=== PATIENT | female | born 1975 | race Caucasian/White ===

== ENCOUNTER → 2020-03-27 08:25 | Outpatient (BNVA) | payer MEDICAID, SELFPAY | PROVIDERS: Visit Provider Psychiatry & Neurology Psychiatry | DX: F41.9 Anxiety disorder, unspecified (principal); F34.9 Persistent mood [affective] disorder, unspecified; F43.10 Post-traumatic stress disorder, unspecified; F17.200 Nicotine dependence, unspecified, uncomplicated; G47.00 Insomnia, unspecified; Z87.820 Personal history of traumatic brain injury; G47.33 Obstructive sleep apnea (adult) (pediatric); J44.9 Chronic obstructive pulmonary disease, unspecified; M19.90 Unspecified osteoarthritis, unspecified site; F17.210 Nicotine dependence, cigarettes, uncomplicated | CPT/HCPCS: 99205 ==

== ENCOUNTER → 2020-05-04 07:47 | Outpatient (BNVA) | payer MEDICAID, SELFPAY | PROVIDERS: Visit Provider Psychiatry & Neurology Psychiatry | DX: F34.9 Persistent mood [affective] disorder, unspecified (principal); Z87.820 Personal history of traumatic brain injury; F17.200 Nicotine dependence, unspecified, uncomplicated; G47.33 Obstructive sleep apnea (adult) (pediatric); J44.9 Chronic obstructive pulmonary disease, unspecified; F43.10 Post-traumatic stress disorder, unspecified; G47.00 Insomnia, unspecified; G47.01 Insomnia due to medical condition | CPT/HCPCS: 99214 ==

== ENCOUNTER → 2020-06-01 07:48 | Outpatient (BNVA) | payer MEDICAID, SELFPAY | PROVIDERS: Visit Provider Psychiatry & Neurology Psychiatry | DX: F43.10 Post-traumatic stress disorder, unspecified (principal); F34.9 Persistent mood [affective] disorder, unspecified; F17.200 Nicotine dependence, unspecified, uncomplicated | CPT/HCPCS: 99213 ==

== ENCOUNTER 2020-07-03 08:18 | Outpatient (CLI) | payer MEDICAID, SELFPAY ==
--- NOTE | 2020-07-03 08:27 | US_ITS ---
WS: [id number] ULTRASOUND ABDOMEN LIMITED CLINICAL INFORMATION: CHRONIC VIRAL HEPATITIS C COMPARISON: None. FINDINGS: Liver Size: Upper limits of normal Craniocaudal length: 15.2 cm. Echogenicity: Coarse Surface nodularity: None. Mass (size and location): None. Bile ducts Intrahepatic ducts: Normal. Common bile duct diameter: 0.5 cm. Gallbladder Cholelithiasis Gallstones: Present Gallbladder sludge: None. Gallbladder wall thickening: None. Pericholecystic fluid: None. Sonographic Kelly sign: Absent. Pancreas Normal as visualized. Right kidney: Normal. Hydronephrosis: None. Size: 9.7 cm x 5.9 cm x 5.4 cm. Abdominal aorta and IVC Visualized portions are normal. Ascites: None. US/US gall bladder [id number] IMPRESSION: 1. Mild hepatomegaly with diffuse fatty infiltration. 2. Cholelithiasis. Normal common bile duct. Gallbladder wall thickening. 3. No hydronephrosis in right kidney.
--- NOTE | 2020-07-03 09:00 | PFTS_ITS ---
Date of Study:07/03/20 Date of Dictation: MECHANICS: Forced vital capacity (FVC) is . Forced expiratory volume in one second (FEV1) is . FEV1/FVC is . FLOW VOLUME LOOP: . LUNG VOLUMES: Total lung capacity (TLC) is . Residual volume (RV) is . DIFFUSING CAPACITY FOR CARBON MONOXIDE: . INTERPRETATION: The pulmonary function tests are . mechanics and lung volumes. Gas exchange (DLCO) is . MTDD
== END 2020-07-03 08:19 | disposition home or self-care (01) ==
LOC: US 08:20 → RAD 08:24
PROVIDERS: Visit Provider Nurse Practitioner Family
DX: B18.2 Chronic viral hepatitis C (principal); E04.0 Nontoxic diffuse goiter; R73.9 Hyperglycemia, unspecified; R16.0 Hepatomegaly, not elsewhere classified; K76.0 Fatty (change of) liver, not elsewhere classified; K80.20 Calculus of gallbladder without cholecystitis without obstruction
CPT/HCPCS: 36415; 76705; 94060; J7611

== ENCOUNTER → 2020-07-13 08:11 | Outpatient (BNVA) | payer MEDICAID, SELFPAY | PROVIDERS: Visit Provider Psychiatry & Neurology Psychiatry | DX: F43.10 Post-traumatic stress disorder, unspecified (principal); F17.200 Nicotine dependence, unspecified, uncomplicated; F34.9 Persistent mood [affective] disorder, unspecified | CPT/HCPCS: 99213 ==

== ENCOUNTER 2020-07-15 10:32 | Emergency (ER) | payer MEDICAID, SELFPAY ==
[2020-07-15 10:50] VITALS: BP 127/87; PULSE 99; RESP 16; TEMP 36.4; O2SAT 96; BMI 32.3
--- NOTE | 2020-07-15 11:07 | W.ED.DENTAL ---
HPI - Dental/Oral General: Chief complaint: Dental/Oral Stated complaint: DENTAL PAIN Time Seen by Provider: 07/15/20 11:03 Source: patient Mode of arrival: ambulatory Limitations: no limitations History of Present Illness: HPI Narrative: Citlalli is a nice 45-year-old female who comes in complaining of left lower dental pain. She states her pain began last night. She denies any difficulty swallowing, speaking, she feels a hard area in her mouth but there is no facial swelling. There is been no fever. She denies any nausea or vomiting. She does not report trying anything at home prior to coming in. She describes the pain is severe. She is had similar pain in the past. Associated symptoms: Denies ear or mastoid pain, fever(s) or tongue swelling Review of Systems Const: Denies: fever(s), chills, body aches, fatigue, malaise or diaphoresis Eyes: Denies: change in vision, blurry vision, photophobia, eye discomfort, eye discharge or eye redness ENMT: Reports: dental pain; Denies: throat pain, hoarseness, swelling of lips/tongue, ear or mastoid pain, ear discharge, change in hearing or nasal discharge Card: Denies: chest pain, palpitations, irregular heart rhythm, edema, lightheadedness, syncope, pre-syncope, dyspnea on exertion or orthopnea Resp: Denies: dyspnea, productive cough, non-productive cough, wheezing, hemoptysis or chest congestion GI: Denies: abdominal pain, nausea, vomiting, hematemesis, coffee ground emesis, heartburn, diarrhea, constipation, GI cramping, hematochezia or melena : Denies: flank pain, dysuria, urinary frequency, urinary urgency or hematuria Musc: Denies: neck pain, back pain, extremity pain, extremity swelling, joint pain, joint swelling, joint redness, joint warmth or joint stiffness Skin/Breast: Denies: rash, pruritus, erythema or skin tenderness Neuro: Denies: headache(s), numbness in extremities, weakness in extremities, sensory changes, lack of coordination, difficulty walking, dizziness, vertigo, confusion, Slurred speech present or seizure-like activity Gino/Lymph: Denies: easy bruising, easy bleeding, petechiae, purpura or enlarged lymph nodes All/Imm: Denies: urticaria, throat swelling, tongue swelling, facial swelling or acute wheezing PFSH ED PFSH: Medical History EtOH dependence History of concussion Insomnia Surgical History History of tonsillectomy Social History Smoking and tobacco status: heavy tobacco smoker Alcohol intake: never Substance/Drug Use: never Current gender identity: Female Female Reproductive History: Date of last menstrual period: 06/18/20 Physical Exam Const: COMMON NORMALS: no acute distress, patient oriented x3, no limitations, healthy appearing and well nourished GENERAL APPEARANCE: cooperative, well kempt and well developed HENMT: COMMON NORMALS: normocephalic, atraumatic, external ears normal, EAC's normal and Normal external nose present HEAD & SCALP: normal to inspection, normocephalic and atraumatic FACE & SINUS: normal facial exam and face symmetric NOSE: Normal external nose present and Normal nares present EXTERNAL EAR: Yes external ears normal EXTERNAL AUDITORY CANAL: EAC's normal MOUTH: Normal oral and palatal mucosa present, lip normal and tongue normal TEETH & GINGIVA: Yes other (Left inferior second most posterior molar with obvious dental carry. No surrounding gingival inflammation. No abscess.) Eye: COMMON NORMALS: Equal, round and reactive pupils present and conjunctivae normal GENERAL EYE: appearance normal, both eyes and all related structures ALIGNMENT: Yes alignment normal PERIORBITAL: periorbital findings normal EYELID: eyelids normal CONJUNCTIVA: Yes conjunctivae normal SCLERA: sclerae normal PUPIL: Yes Equal, round and reactive pupils present Neck/C-Spine: COMMON NORMALS: full ROM, no lymphadenopathy, supple, no meningeal signs and no JVD GENERAL: Yes normal visual inspection and Yes trachea midline Chest: COMMONS NORMALS: normal inspection of the chest and normal palpation of entire chest wall Resp: COMMON NORMALS: normal respiratory effort, No retractions, No use of accessory muscles and clear to auscultation bilaterally EFFORT & INSPECTION: Yes able to speak in complete sentences and Yes symmetric chest movement AUSCULTATION: clear to auscultation bilaterally, no crackles, no rales, no rhonchi and no wheezes Cardio: COMMON NORMALS: no JVD, regular rate, regular rhythm, S1 normal heart sound present and S2 normal heart sound present RATE: regular rate RHYTHM: regular rhythm HEART SOUNDS: S1 normal heart sound present, S2 normal heart sound present, no click, no gallops, no murmurs, no rubs and abnormal split S2 GI: COMMON NORMALS: Soft to palpation and No hepatosplenomegaly present PALPATION: Yes Soft to palpation, No Tenderness to palpation present (GI), No Guarding due to palpation present (GI), No Rigid due to palpation, Yes No hepatosplenomegaly present, No Hernia present, No Palpable mass present and No Pulsatile mass present : COMMON NORMALS: Yes no CVA tenderness BLADDER/KIDNEY EXAM: Yes no CVA tenderness EXTERNAL FEMALE EXAM: No Hernia present Back/Pelvis: COMMON NORMALS: no CVA tenderness, thoracic and lumbar spine normal to inspection, no thoracic nor lumbar tenderness and thoraco-lumbar ROM normal Extremity: COMMON NORMALS: normal to inspection, full ROM, capillary refill normal, no joint enlargement, no clubbing, cyanosis or edema and no calf tenderness Neuro: COMMON NORMALS: patient oriented x3, CN's II-XII intact bilaterally, moves all extremities, no focal motor deficits and no sensory deficits noted MENINGEAL SIGNS: Yes no meningeal signs SPEECH: speech normal Psych: COMMON NORMALS: mental status grossly normal, Normal thought process present, cooperative, normal affect, speech normal and activity/motor behavior normal APPEARANCE: Yes well kempt SPEECH: Yes normal speech THOUGHT PROCESS: Normal thought process present Skin: COMMON NORMALS: no rashes or lesions noted, turgor normal, no jaundice, no petechiae and no mottling GENERAL SKIN EXAM: no rashes or lesions noted and turgor normal Course Vital Signs: Vital signs: Vital Signs Temperature 97.6 F 07/15/20 11:32 Pulse Rate 97 07/15/20 11:32 Respiratory Rate 18 07/15/20 11:32 Blood Pressure 127/62 07/15/20 11:32 Pulse Oximetry 96 07/15/20 11:32 MDM - Dental/Oral MDM Narrative: Medical decision making narrative: Citlalli is a 45-year-old female who comes in complaining of dental pain that started last night. Her vital signs are stable and she is afebrile. On exam there is no sign of airway issue. The patient is able to speak clearly and to my examination there is no facial swelling. Patient is no sign of Ronaldo's angina, dental abscess, airway or deep space infection. I will place her on antibiotics to cover dental infection and give her something strong here for pain. Patient is instructed to use cold packs and Tylenol Motrin at home. She understands that she will need to follow-up with a dentist to have definitive care of her teeth. Discharge Plan Discharge Patient Disposition: Home Clinical Impression: Toothache, Dental caries Condition: Stable Prescriptions: New Cleocin HCl 150 mg capsule 300 mg PO Q6H 10 Days Qty: 80 RF: 0 No Action levomefolate calcium [L-Methylfolate] 15 mg tablet 15 mg PO DAILY Qty: 30 RF: 2 albuterol sulfate 90 mcg/actuation HFA aerosol inhaler 2 puff INHALATION Q6H PRNRF: 0 fluticasone propion-salmeterol [Advair Diskus] 250-50 mcg/dose blister with device 1 inh INHALATION BID RF: 0 Spiriva Respimat 1.25 mcg/actuation mist 2 puff INHALATION DAILY RF: 0 buspirone 10 mg tablet 20 mg PO TID 30 Days Qty: 180 RF: 2 duloxetine [Cymbalta] 60 mg capsule,delayed release(DR/EC) 120 mg PO DAILY Qty: 60 RF: 2 prazosin 5 mg capsule 5 mg PO .HS Qty: 30 RF: 2 hydroxyzine HCl 50 mg tablet 50 mg PO QID PRN (Reason: insomnia/anxiety) Qty: 120 RF: 2 Discharge Orders: Discharge Order (Routine); Ordered 07/15/20 Ordered By: Destiny Smith Discharge Diet: Soft Mechanical Discharge Activity: Increase activity as tolerated Patient Instructions: Dental Caries (ED), Toothache (ED) Activity Restrictions/Additional Instructions: Please return to the ER immediately for any of the signs or symptoms listed on your discharge instruction sheets, worsening/changing of your symptoms, you are not getting better as quickly as expected, or for ANY other cause or concerns. Return to ER for facial swelling, fever, difficulty swallowing, or for any other cause for concern. Be certain to follow-up with a dentist as soon as possible for definitive care of your tooth. 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
[2020-07-15 11:08] VITALS: BP 127/87; PULSE 97; RESP 20; O2SAT 97
[2020-07-15] MEDS: HYDROcodone-acetaminophen 5-325 mg Tablet 1 TAB PO (11:18)
[2020-07-15] MEDS: clindamycin 150 mg Capsule 300 MG PO (11:28)
[2020-07-15 11:32] VITALS: BP 127/62; PULSE 97; RESP 18; TEMP 36.4; O2SAT 96
== END 2020-07-15 11:35 | disposition home or self-care (01) ==
LOC: ER 11:20
PROVIDERS: Emergency Provider Emergency Medicine
DX: K02.9 Dental caries, unspecified (principal); F17.210 Nicotine dependence, cigarettes, uncomplicated
CPT/HCPCS: 12345; 99281; 99283

== ENCOUNTER → 2020-10-05 08:25 | Outpatient (BNVA) | payer MEDICAID, SELFPAY | PROVIDERS: Visit Provider Psychiatry & Neurology Psychiatry | DX: F43.10 Post-traumatic stress disorder, unspecified (principal); F17.200 Nicotine dependence, unspecified, uncomplicated; F34.9 Persistent mood [affective] disorder, unspecified | CPT/HCPCS: 99213 ==

== ENCOUNTER 2020-12-27 13:01 | Outpatient (CLI) | payer MEDICAID, SELFPAY ==
--- NOTE | 2020-12-27 13:17 | XR_ITS ---
WS: [id number] PROCEDURE: XR chest 2V* [id number] CLINICAL INFORMATION: CHRONIC OBSTRUCTIVE PULMONART DISEASE COMPARISON: None. FINDINGS: Heart: Normal cardiac silhouette. Lungs: Moderate chronic emphysematous changes. No acute pulmonary infiltrates. No focal pneumonia or pleural fluid. Bones: Normal visualized bony structures. XR/XR chest 2V* [id number] IMPRESSION: Moderate chronic emphysematous changes. No acute pulmonary infiltrates.
== END 2020-12-27 13:02 | disposition home or self-care (01) ==
LOC: RADWPI 13:04
PROVIDERS: PCP Nurse Practitioner Family; Visit Provider Nurse Practitioner Family
DX: J44.9 Chronic obstructive pulmonary disease, unspecified (principal)
CPT/HCPCS: 71046

== ENCOUNTER → 2020-12-29 08:18 | Outpatient (BNVA) | payer MEDICAID, SELFPAY | PROVIDERS: PCP Nurse Practitioner Family; Visit Provider Psychiatry & Neurology Psychiatry | DX: F43.10 Post-traumatic stress disorder, unspecified (principal); F34.9 Persistent mood [affective] disorder, unspecified; F17.200 Nicotine dependence, unspecified, uncomplicated; G47.01 Insomnia due to medical condition | CPT/HCPCS: 99214 ==

== ENCOUNTER → 2021-02-08 08:06 | Outpatient (BNVA) | payer MEDICAID, SELFPAY | PROVIDERS: PCP Nurse Practitioner Family; Visit Provider Psychiatry & Neurology Psychiatry | DX: F43.10 Post-traumatic stress disorder, unspecified (principal); F17.200 Nicotine dependence, unspecified, uncomplicated; F34.9 Persistent mood [affective] disorder, unspecified | CPT/HCPCS: 99213 ==

== ENCOUNTER 2021-03-14 14:02 | Outpatient (CLI) | payer MEDICAID, SELFPAY ==
--- NOTE | 2021-03-14 14:10 | US_ITS ---
WS: [id number] ULTRASOUND THYROID TECHNIQUE: Ultrasound of the thyroid. CLINICAL INFORMATION: NONTOXIC GOITER COMPARISON: None. FINDINGS: Thyroid: Right and left thyroid lobes are normal in size and echotexture. Right thyroid lobe: 5.2 cm x 2.0 cm x 1.1 cm Solid slightly heterogeneous right mid thyroid nodule measuring 7.4 7.1 x 9.0 mm. Left thyroid lobe: 4.4 cm x 1.3 cm x 1.4 cm. Isthmus: 0.4 mm. Cervical lymphadenopathy: None. US/US thyroid [id number] IMPRESSION: 1. Solid slightly heterogeneous right mid thyroid nodule measuring 7.4 x 7.1 x 9.0 mm. Recommend 12 month follow-up. 2. No suspicious left thyroid nodules.
== END 2021-03-14 14:03 | disposition home or self-care (01) ==
LOC: US 14:03
PROVIDERS: PCP Nurse Practitioner Family; Visit Provider Nurse Practitioner Family
DX: E04.9 Nontoxic goiter, unspecified (principal)
CPT/HCPCS: 76536

== ENCOUNTER 2021-04-07 15:46 | Emergency (ER) | payer MEDICAID, SELFPAY ==
[2021-04-07 15:48] VITALS: BP 125/87; PULSE 75; RESP 20; TEMP 36.8; O2SAT 97; BMI 31.8
--- NOTE | 2021-04-07 16:25 | ED_ITS ---
HPI - Fever General: Chief Complaint: Fever Stated Complaint: fever and cold symptoms Time Seen by Provider: 04/07/21 15:52 Source: patient Mode of arrival: ambulatory Limitations: no limitations History of Present Illness: HPI Narrative: This is a 46 year old female with a history of COPD who still smokes one pack of cigarettes a day. She presents with subjective fever, chills, cough, myalgias of 3 days duration. She states that she has been getting worse and so is here to be evaluated. MD elicited complaint: fever Onset (ago): day(s) (3) Exacerbating factors: nothing Relieving factors: nothing Associated symptoms: Reports chills, cough, myalgias, nasal congestion and short of breath; Deny abdominal pain, flank pain, chest pain, confusion, diarrhea, dysuria, extremity pain, headache(s), nausea, night sweats, rash, rhinorrhea, sinus pain, stiffness, sore throat, vaginal discharge, vomiting or weight loss Treatments prior to arrival fever: none Review of Systems General: Reports: 10 or more systems reviewed and unremarkable except in HPI and below Const: Reports: chills; Denies: night sweats ENMT: Reports: nasal congestion; Denies: sinus pain Card: Denies: chest pain GI: Denies: abdominal pain, nausea, vomiting or diarrhea : Denies: flank pain, dysuria or vaginal discharge Musc: Denies: extremity pain Neuro: Denies: headache(s) or confusion PFS ED PFSH: Medical History (Updated 04/07/21 @ 18:07 by Conchis Moreno MD, MSM) Cholelithiasis COPD (chronic obstructive pulmonary disease) EtOH dependence Hepatitis C History of concussion Insomnia Post traumatic stress disorder (PTSD) Surgical History History of hip replacement right History of tonsillectomy Family History Grandfather Cancer paternal lung cancer Other Diabetes Denies family history of Anesthesia complication Bleeding disorder Social History Smoking and tobacco status: heavy tobacco smoker Alcohol intake: never Household members: family Marital status: Single Current occupational status: employed History of recent travel: No Current gender identity: Female Female Reproductive History: Date of last menstrual period: 06/18/20 Physical Exam Const: COMMON NORMALS: no acute distress, average body habitus, patient oriented x3, no limitations, healthy appearing, alert and well nourished HENMT: COMMON NORMALS: normocephalic, atraumatic and moist oral mucous membranes HEAD & SCALP: normocephalic and atraumatic Neck/C-Spine: COMMON NORMALS: no meningeal signs and no JVD Resp: COMMON NORMALS: normal respiratory effort, No retractions, No use of ac cessory muscles and percussion normal AUSCULTATION: wheezes and diminished lung sounds PERCUSSION: percussion normal Cardio: COMMON NORMALS: no JVD, regular rate, regular rhythm, S1 normal heart sound present, S2 normal heart sound present, No gallops present (Cardio), No clicks present (Cardio), No murmurs present (Cardio), No rub (Cardio) and Peripheral pulses 2+ throughout RATE: regular rate RHYTHM: regular rhythm HEART SOUNDS: S1 normal heart sound present and S2 normal heart sound present PERIPHERAL PULSES: Peripheral pulses 2+ throughout GI: COMMON NORMALS: Normal to inspection, nondistended, normoactive bowel sounds present, Soft to palpation, non-tender, No hepatosplenomegaly present, no masses and no bruits PALPATION: Yes Soft to palpation and Yes No hepatosplenomegaly present Neuro: COMMON NORMALS: patient oriented x3 SENSORIUM/ORIENTATION: Yes alert MENINGEAL SIGNS: Yes no meningeal signs Skin: COMMON NORMALS: no rashes or lesions noted, no wounds, turgor normal, no jaundice, no petechiae and no mottling GENERAL SKIN EXAM: no rashes or lesions noted and turgor normal Course Reevaluation(s): Reevaluation #1: Discussed her lab and imaging findings with her. Symptoms consistent with COPD exacerbation and possibly pneumonia. We will treat her with oral antibiotic and steroids. She voiced understanding and is in agreement with the plan. Time: 18:06 Vital Signs: Vital signs: Vital Signs Temperature 98.3 F 04/07/21 15:48 Pulse Rate 77 04/07/21 18:27 Respiratory Rate 17 04/07/21 18:23 Blood Pressure 149/100 04/07/21 17:03 Pulse Oximetry 96 04/07/21 18:23 MDM - Fever MDM Narrative: Medical decision making narrative: 46-year-old female patient who presented to the emergency department with a fever body aches and a cough. Evaluation in the emergency department is consistent with a COPD exacerbation and she is managed as such. Medical Records: Attestation: I reviewed the patient's medical records. Lab Data: Attestation: I reviewed the patient's lab results. Labs: Lab Results 04/07/21 04/07/21 04/07/21 Range/Units 17:00 17:00 17:00 WBC 6.3 (4.0-10.0) 10^3/ uL RBC 4.10 (4.1-5.3) 10^6/u L Hgb 11.7 (11.5-15.3) g/dL Hct 36.9 L (37.0-47.0) % MCV 90.0 (81-99) fL MCH 28.5 (28.0-34.0) pg MCHC 31.7 (30.0-36.0) g/dL RDW 13.9 (12.1-15.1) % Plt Count 280 (130-400) 10^3/c mm MPV 9.5 (7.4-10.4) fL Neut % (Auto) 53.9 % Lymph % (Auto) 32.3 % [place] % (Auto) 9.4 % Eos % (Auto) 3.8 % Baso % (Auto) 0.3 % Neut # (Auto) 3.36 (1.8-7.7) 10^3/u L Lymph # (Auto) 2.0 (0.8-4.8) 10^3/u L [place] # (Auto) 0.6 (0.2-0.9) 10^3/u L Eos # (Auto) 0.2 (0.0-0.8) 10^3/u L Baso # (Auto) 0.0 (0.0-0.1) 10^3/u L Nucleated RBC % (a uto) 0 % Nucleated RBCs # 0.0 /100WBC Sodium 139 (136-145) mmol/L Potassium 4.0 (3.5-5.1) mmol/L Chloride 105 (98-107) mmol/L Carbon Dioxide 25 (22-29) mmol/L Anion Gap 13.0 (5-19) BUN 5 L (6-20) mg/dL Creatinine 0.9 (0.5-0.9) mg/dL GFR Calculation 68.0 L (90-130) mL/min Glucose 83 (65-115) mg/dL Calculated Osmolal ity 284 L (285-295) mOsm/k g Lactic Acid 1.3 (0.5-2.2) mmol/L Calcium 7.8 L (8.5-10.5) mg/dL Ferritin 37 (15-150) ng/mL Total Bilirubin 0.2 (0.15-1.2) mg/dL AST 7 (0-32) U/L ALT < 5 (0-33) U/L Alkaline Phosphata se 83 (35-105) IU/L C-Reactive Protein 23.5 H (0.0-4.9) mg/L Total Protein 6.1 L (6.6-8.7) g/dL Albumin 3.4 L (3.5-5.2) g/dL Globulin 2.7 (1.3-4.6) g/dL Procalcitonin 0.04 (0-0.5) ng/mL Influenza Type A A g (Negative) Influenza Type B A g (Negative) SARS-CoV-2 Ag (Rap id) (Negative) 04/07/21 04/07/21 Range/Units 17:00 17:00 WBC (4.0-10.0) 10^3/ uL RBC (4.1-5.3) 10^6/u L Hgb (11.5-15.3) g/dL Hct (37.0-47.0) % MCV (81-99) fL MCH (28.0-34.0) pg MCHC (30.0-36.0) g/dL RDW (12.1-15.1) % Plt Count (130-400) 10^3/c mm MPV (7.4-10.4) fL Neut % (Auto) % Lymph % (Auto) % [place] % (Auto) % Eos % (Auto) % Baso % (Auto) % Neut # (Auto) (1.8-7.7) 10^3/u L Lymph # (Auto) (0.8-4.8) 10^3/u L [place] # (Auto) (0.2-0.9) 10^3/u L Eos # (Auto) (0.0-0.8) 10^3/u L Baso # (Auto) (0.0-0.1) 10^3/u L Nucleated RBC % (a uto) % Nucleated RBCs # /100WBC Sodium (136-145) mmol/L Potassium (3.5-5.1) mmol/L Chloride (98-107) mmol/L Carbon Dioxide (22-29) mmol/L Anion Gap (5-19) BUN (6-20) mg/dL Creatinine (0.5-0.9) mg/dL GFR Calculation (90-130) mL/min Glucose (65-115) mg/dL Calculated Osmolal ity (285-295) mOsm/k g Lactic Acid (0.5-2.2) mmol/L Calcium (8.5-10.5) mg/dL Ferritin (15-150) ng/mL Total Bilirubin (0.15-1.2) mg/dL AST (0-32) U/L ALT (0-33) U/L Alkaline Phosphata se (35-105) IU/L C-Reactive Protein (0.0-4.9) mg/L Total Protein (6.6-8.7) g/dL Albumin (3.5-5.2) g/dL Globulin (1.3-4.6) g/dL Procalcitonin (0-0.5) ng/mL Influenza Type A A g Negative (Negative) Influenza Type B A g Negative (Negative) SARS-CoV-2 Ag (Rap id) Negative (Negative) Imaging Data^: CXR: Attestation: I personally reviewed and interpreted this imaging study as follows: Radiologist's impression: [address] [address]POrs ReportSigned Patient: Citlalli Chappell #: [id number]: [id number]#:[id number]/Sex: 46 / FADM Date: 04/07/21Loc: ERRoom/Bed:Attending Dr: Ordering Provider/Ordering MD: Conchis Moreno MD, [facility] Date of Service: 04/07/21 Procedure(s): XR chest 1V portable [id number] Accession Number(s): [id number] Report Number: [id number] PROCEDURE INFORMATION: Exam: XR Chest Exam date and time: 04/07/2021 4:40 PM Age: 46 years old Clinical indication: Shortness of breath; Additional info: SOB, fever, cough TECHNIQUE: Imaging protocol: XR of the chest. Views: 1 view. COMPARISON: CR XR chest 2V* [id number] 12/27/2020 1:23 PM FINDINGS: Lungs: There is increased interstitial opacity and hazy ground-glass densities in the lung bases compatible with mild interstitial edema, bronchitis or viral pneumonitis. There is unchanged linear scarring in the left lower lobe. No lobar consolidation. Pleural spaces: Unremarkable. No pleural effusion. No pneumothorax. Heart/Mediastinum: There is borderline cardiomegaly. Bones/joints: No acute abnormality. XR/XR chest 1V portable [id number] IMPRESSION: There is increased interstitial opacity and hazy ground-glass densities in the lung bases compatible with mild interstitial edema, bronchitis or viral pneumonitis. Dictated By:Tyree Cui By:Tyree Cui Date/Time:04/07/211704DD/ 03 Discharge Plan Discharge Patient Disposition: Home Clinical Impression: COPD exacerbation Condition: Stable Prescriptions: New azithromycin 250 mg tablet See Rx Instructions .ROUTE .COMPLEX Qty: 6 RF: 0 prednisone 20 mg tablet 60 mg PO DAILY 5 Days Qty: 15 RF: 0 Continued levomefolate calcium [L-Methylfolate] 15 mg tablet 15 mg PO DAILY Qty: 30 RF: 2 buspirone 10 mg tablet 20 mg PO TID 30 Days Qty: 180 RF: 2 duloxetine [Cymbalta] 60 mg capsule,delayed release(DR/EC) 120 mg PO DAILY Qty: 60 RF: 2 hydroxyzine HCl 50 mg tablet 50 mg PO QID PRN (Reason: insomnia/anxiety) Qty: 120 RF: 2 trazodone 100 mg tablet 200 mg PO .HS PRN (Reason: insomnia) Qty: 60 RF: 2 prazosin 5 mg capsule 5 mg PO .HS Qty: 30 RF: 2 albuterol sulfate 90 mcg/actuation HFA aerosol inhaler 2 puff INHALATION Q6H PRNRF: 0 fluticasone propion-salmeterol [Advair Diskus] 250-50 mcg/dose blister with device 1 inh INHALATION BID RF: 0 Spiriva Respimat 1.25 mcg/actuation mist 2 puff INHALATION DAILY RF: 0 cholecalciferol (vitamin D3) 25 mcg (1,000 unit) capsule 25 mcg PO DAILY RF: 0 sofosbuvir-velpatasvir [Epclusa] 400-100 mg tablet 1 tab PO DAILY 84 Days Qty: 28 RF: 2 Discharge Orders: Discharge ED (Routine); Ordered 04/07/21 Ordered By: Conchis Moreno Referrals: Noemí Harris NP [Primary Care Provider] - 1-3 days Discharge Diet: Usual diet Discharge Activity: Increase activity as tolerated Patient Instructions: Chronic Obstructive Pulmonary Disease (ED), Community- acquired Pneumonia (ED) Activity Restrictions/Additional Instructions: Return for any new or worsening symptoms. Follow-up with your primary care provider within 3 days. Take medications as prescribed. Use your albuterol inhaler every 4 hours for the next 2 days, and then every 4 hours as needed thereafter. It is important to quit smoking to help improve your lung function and to prevent further deterioration of your lungs. Stand Alone Forms: Work/School Release Coding Level of Care Code ED [employer] Targeting Technician for Danya Fwd Exam Detailed
[2021-04-07 17:03] VITALS: BP 149/100; PULSE 73; RESP 16; O2SAT 98
[2021-04-07 17:09] LABS: Basophils % 0.3 %; Eosinophils # 0.2 10^3/uL (0.0-0.8); Eosinophils % 3.8 %; Hematocrit 36.9 % (37.0-47.0); Hemoglobin 11.7 g/dL (11.5-15.3); Lymphocytes % 32.3 %; Mean Corpuscular HGB Conc 31.7 g/dL (30.0-36.0); Mean Corpuscular Hemoglobin 28.5 pg (28.0-34.0); Mean Platelet Volume 9.5 fL (7.4-10.4); Monocytes # 0.6 10^3/uL (0.2-0.9); Monocytes % 9.4 %; Neutrophils # 3.36 10^3/uL (1.8-7.7); Neutrophils % 53.9 %; Nucleated Red Blood Cells % 0 %; Platelet Count 280 10^3/cmm (130-400); Red Cell Distribution Width 13.9 % (12.1-15.1); White Blood Count 6.3 10^3/uL (4.0-10.0)
[2021-04-07 17:26] LABS: Lactic Sepsis W/Reflex 1.3 mmol/L (0.5-2.2)
[2021-04-07 17:33] LABS: Influenza A by IFA Negative (Negative); Influenza B by IFA Negative (Negative); SARS Covid-2 Antigen Negative (Negative)
[2021-04-07 17:36] LABS: Procalcitonin 0.04 ng/mL (0-0.5)
[2021-04-07 17:47] LABS: Alanine Aminotransferase < 5 U/L (0-33); Albumin Level 3.4 g/dL (3.5-5.2); Alkaline Phosphatase 83 IU/L (35-105); Aspartate Amino Transferase 7 U/L (0-32); Blood Urea Nitrogen 5 mg/dL (6-20); C Reactive Protein 23.5 mg/L (0.0-4.9); Calcium 7.8 mg/dL (8.5-10.5); Carbon Dioxide 25 mmol/L (22-29); Chloride 105 mmol/L (98-107); Ferritin 37 ng/mL (15-150); Globulin 2.7 g/dL (1.3-4.6); Glucose 83 mg/dL (65-115); Osmolality Calculated 284 mOsm/kg (285-295); Sodium 139 mmol/L (136-145); Total Bilirubin 0.2 mg/dL (0.15-1.2); Total Protein 6.1 g/dL (6.6-8.7)
[2021-04-07 18:23] VITALS: PULSE 69; RESP 17; O2SAT 96
[2021-04-07] MEDS: albuterol 8 gm MDI 4 PUFF INHALATION (18:23)
[2021-04-07 18:27] VITALS: PULSE 77
[2021-04-07] MEDS: cefTRIAXone 1,000 MG in sodium chloride 0.9% (plus) 50 ML 100 MG IV (18:36)
== END 2021-04-07 19:25 | disposition home or self-care (01) ==
PROVIDERS: Emergency Provider Family Medicine; PCP Nurse Practitioner Family
DX: J44.1 Chronic obstructive pulmonary disease with (acute) exacerbation (principal); Z86.19 Personal history of other infectious and parasitic diseases; F17.210 Nicotine dependence, cigarettes, uncomplicated
CPT/HCPCS: 71045; 80053; 82728; 83605; 84145; 85025; 86140; 87426; 87804; 94640; 96365; 96375; 99284; J0696; J2930; J3535

== ENCOUNTER → 2021-05-03 12:45 | Outpatient (BNVA) | payer MEDICAID, SELFPAY | PROVIDERS: PCP Nurse Practitioner Family; Visit Provider Psychiatry & Neurology Psychiatry | DX: F43.10 Post-traumatic stress disorder, unspecified (principal); F17.200 Nicotine dependence, unspecified, uncomplicated; F34.9 Persistent mood [affective] disorder, unspecified | CPT/HCPCS: 99213 ==

== ENCOUNTER → 2021-06-20 15:25 | Outpatient (BNVA) | payer MEDICAID, SELFPAY | PROVIDERS: PCP Nurse Practitioner Family; Visit Provider Internal Medicine | DX: B18.2 Chronic viral hepatitis C (principal) | CPT/HCPCS: 87522 ==

== ENCOUNTER → 2021-07-26 12:42 | Outpatient (BNVA) | payer MEDICAID, SELFPAY | PROVIDERS: PCP Nurse Practitioner Family; Visit Provider Psychiatry & Neurology Psychiatry | DX: F43.10 Post-traumatic stress disorder, unspecified (principal); F34.9 Persistent mood [affective] disorder, unspecified; F17.210 Nicotine dependence, cigarettes, uncomplicated | CPT/HCPCS: 99213 ==

== ENCOUNTER 2021-08-17 10:35 | Outpatient (CLI) | payer MEDICAID, SELFPAY ==
--- NOTE | 2021-08-17 11:02 | XR_ITS ---
WS: [id number] LEFT ELBOW: 3 VIEW(S) TECHNIQUE: AP, oblique and lateral. HISTORY: PAIN IN LEFT ELBOW COMPARISON: None available. There is very slight elevation of the cortex involving the surface of the radial head and the radial neck. This may be from an injury to the annular and/or radial collateral ligament with a mild avulsio n. There is no associated joint effusion at this time. No soft tissue abnormality. XR/XR elbow LT 2V [id number] IMPRESSION: 1. No joint effusion. 2. Very slight elevation of the cortex involving the radial head and neck. May be from injury associated with the radial collateral ligament and/or annular l igament. May be a healed injury as there is no joint effusion.
== END 2021-08-17 10:36 | disposition home or self-care (01) ==
PROVIDERS: PCP Nurse Practitioner Family; Visit Provider Nurse Practitioner Family
DX: M25.522 Pain in left elbow (principal)
CPT/HCPCS: 73070

== ENCOUNTER 2021-09-28 13:12 | Outpatient (CLI) | payer MEDICAID, SELFPAY ==
--- NOTE | 2021-09-28 13:18 | XR_ITS ---
WS: [id number] Chest 2 views, 09/28/2021 Clinical Data: ELEVATED WHITE BLOOD CELL COUNT Comparison: Portable chest, 04/07/2021 Findings: No nodules, masses or effusions are seen. The heart is normal. The pulmonary vascularity is not increased. No pneumonia or pneumothorax is seen. XR/XR chest 2V* [id number] Impression: Negative chest.
== END 2021-09-28 13:13 | disposition home or self-care (01) ==
PROVIDERS: PCP Nurse Practitioner Family; Visit Provider Nurse Practitioner Family
DX: D72.829 Elevated white blood cell count, unspecified (principal)
CPT/HCPCS: 71046

== ENCOUNTER → 2022-01-09 10:13 | Outpatient (BNVA) | payer MEDICAID, SELFPAY | PROVIDERS: PCP Nurse Practitioner Family; Visit Provider Psychiatry & Neurology Psychiatry | DX: F34.9 Persistent mood [affective] disorder, unspecified (principal); F43.10 Post-traumatic stress disorder, unspecified | CPT/HCPCS: 99213 ==

== ENCOUNTER 2022-02-27 11:22 | Outpatient (CLI) | payer MEDICAID, SELFPAY ==
--- NOTE | 2022-02-27 11:44 | XR_ITS ---
WS: [id number] XR chest 2V* [id number] REASON FOR EXAM: COPD W/EXACERBATION FINDINGS: Chest is unchanged compared to 09/28/2021. The heart and mediastinum are within normal limits. Calcified granulomatous disease bilaterally. No acute pulmonary parenchymal or pleural abnormality. Bony thorax is intact without focal abnormality. XR/XR chest 2V* [id number] IMPRESSION: Stable chest without acute abnormality.
== END 2022-02-27 11:23 | disposition home or self-care (01) ==
LOC: RAD 11:26
PROVIDERS: PCP Nurse Practitioner Family; Visit Provider Nurse Practitioner Family
DX: J44.1 Chronic obstructive pulmonary disease with (acute) exacerbation (principal)
CPT/HCPCS: 71046

== ENCOUNTER → 2022-04-03 09:54 | Outpatient (BNVA) | payer MEDICAID, SELFPAY | PROVIDERS: PCP Nurse Practitioner Family; Visit Provider Psychiatry & Neurology Psychiatry | DX: F43.10 Post-traumatic stress disorder, unspecified (principal); F34.9 Persistent mood [affective] disorder, unspecified | CPT/HCPCS: 99213 ==

== ENCOUNTER 2022-06-12 16:29 | Emergency (ER) | payer MEDICAID, SELFPAY ==
[2022-06-12 17:05] VITALS: BP 139/92; PULSE 91; RESP 16; TEMP 37.2; O2SAT 96; BMI 29.9
--- NOTE | 2022-06-12 17:05 | ECG_ITS ---
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 Measurements Intervals [place] Rate: 97 P: 52 TX: 170 QRS: 20 QRSD: 90 T: 70 QT: 331 QTc: 422 Interpretive Statements SINUS RHYTHM NONSPECIFIC T-WAVE ABNORMALITY No previous ECG available for comparison Electronically Signed On 06-12-2022 23:21:01 CDT by Jose Manzano M.D. [id number]
[2022-06-12 18:27] LABS: Basophils % 0.2 %; Eosinophils # 0.1 10^3/uL (0.0-0.8); Eosinophils % 0.9 %; Hemoglobin 14.6 g/dL (11.5-15.3); Lymphocytes # 3.1 10^3/uL (0.8-4.8); Lymphocytes % 26.6 %; Mean Corpuscular HGB Conc 31.7 g/dL (30.0-36.0); Mean Corpuscular Hemoglobin 28.5 pg (28.0-34.0); Mean Corpuscular Volume 89.8 fl (81-99); Monocytes # 0.8 10^3/uL (0.2-0.9); Monocytes % 7.1 %; Neutrophils # 7.55 10^3/uL (1.8-7.7); Neutrophils % 64.8 %; Nucleated Red Blood Cells % 0 %; Platelet Count 380 10^3/cmm (130-400); Red Blood Count 5.12 10^6/uL (4.1-5.3); White Blood Count 11.6 10^3/uL (4.0-10.0)
--- NOTE | 2022-06-12 19:05 | ECG_ITS ---
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 Measurements Intervals [place] Rate: 81 P: 50 RI: 173 QRS: 42 QRSD: 84 T: 68 QT: 380 QTc: 442 Interpretive Statements SINUS RHYTHM NONSPECIFIC ST & T-WAVE ABNORMALITY Compared to ECG 06/12/2022 18:50:01 No significant changes Electronically Signed On 06-12-2022 23:22:37 CDT by Jose Manzano M.D. [id number]
[2022-06-12 19:17] LABS: Troponin(5th) Baseline 6 ng/L (0-10)
[2022-06-12 19:19] LABS: Alanine Aminotransferase 12 U/L (0-33); Albumin Level 4.1 g/dL (3.5-5.2); Alkaline Phosphatase 95 IU/L (35-105); Blood Urea Nitrogen 5 mg/dL (6-20); Calcium 8.9 mg/dL (8.5-10.5); Carbon Dioxide 23 mmol/L (22-29); Chloride 96 mmol/L (98-107); Globulin 3.4 g/dL (1.3-4.6); Glomerular Filtration Rate 108.1 mL/min (90-130); Glucose 108 mg/dL (65-115); Lipase 22 U/L (13-60); Osmolality Calculated 278 mOsm/kg (285-295); Sodium 135 mmol/L (136-145); Total Bilirubin 0.3 mg/dL (0.15-1.2); Total Protein 7.5 g/dL (6.6-8.7)
[2022-06-12 19:43] LABS: Aspartate Amino Transferase 17 U/L (0-32)
[2022-06-12 19:51] LABS: Anion Gap 18.9 (5-19); Potassium 2.9 mmol/L (3.5-5.1)
--- NOTE | 2022-06-12 20:26 | W.ED.NAVMDI ---
HPI - Nausea/Vomiting/Diarrhea General: Chief complaint: Nausea/Vomiting/Diarrhea Stated complaint: weakness Time Seen by Provider: 06/12/22 20:26 [facility] ED PFSH: Medical History Cholelithiasis COPD (chronic obstructive pulmonary disease) EtOH dependence Hepatitis C History of concussion Insomnia Post traumatic stress disorder (PTSD) Psychiatric care Surgical History History of hip replacement right History of tonsillectomy Family History Grandfather Cancer paternal lung cancer Other Diabetes Denies family history of Anesthesia complication Bleeding disorder Social History (Reviewed 06/12/22 @ 20: by Ford Blum MD) Smoking and tobacco status: current every day smoker cigarettes Packs smoked per day: 1 Years cigarettes smoked: 24 Quit status (tobacco): considering quitting Second hand smoke exposure: Yes Alcohol intake: never Household members: family Marital status: Single Current occupational status: employed History of recent travel: No Current gender identity: Female Female Reproductive History: Date of last menstrual period: 06/18/20 Course Vital Signs: Vital signs: Vital Signs Temperature 98.9 F 06/12/22 17:05 Pulse Rate 91 06/12/22 17:05 Respiratory Rate 16 06/12/22 17:05 Blood Pressure 139/92 06/12/22 17:05 Pulse Oximetry 96 06/12/22 17:05 MDM - Nausea/Vomiting/Diarrhea Lab Data : 06/12/22 18:17 06/12/22 18:17 Laboratory Results WBC 11.6 10^3/uL (4.0-10.0) H 06/12/22 18:17 RBC 5.12 10^6/uL (4.1-5.3) 06/12/22 18:17 Hgb 14.6 g/dL (11.5-15.3) 06/12/22 18:17 Hct 46.0 % (37.0-47.0) 06/12/22 18:17 MCV 89.8 fl (81-99) 06/12/22 18:17 MCH 28.5 pg (28.0-34.0) 06/12/22 18:17 MCHC 31.7 g/dL (30.0-36.0) 06/12/22 18:17 RDW 15.0 % (12.1-15.1) 06/12/22 18:17 Plt Count 380 10^3/cmm (130-400) 06/12/22 18:17 MPV 10.0 fL (7.4-10.4) 06/12/22 18:17 Neut % (Auto) 64.8 % 06/12/22 18:17 Lymph % (Auto) 26.6 % 06/12/22 18:17 [place] % (Auto) 7.1 % 06/12/22 18:17 Eos % (Auto) 0.9 % 06/12/22 18:17 Baso % (Auto) 0.2 % 06/12/22 18:17 Neut # (Auto) 7.55 10^3/uL (1.8-7.7) 06/12/22 18:17 Lymph # (Auto) 3.1 10^3/uL (0.8-4.8) 06/12/22 18:17 [place] # (Auto) 0.8 10^3/uL (0.2-0.9) 06/12/22 18:17 Eos # (Auto) 0.1 10^3/uL (0.0-0.8) 06/12/22 18:17 Baso # (Auto) 0.0 10^3/uL (0.0-0.1) 06/12/22 18:17 Nucleated RBC % (auto) 0 % 06/12/22 18:17 Nucleated RBCs # 0.0 /100WBC 06/12/22 18:17 Sodium 135 mmol/L (136-145) L 06/12/22 18:17 Potassium 2.9 mmol/L (3.5-5.1) L 06/12/22 18:17 Chloride 96 mmol/L (98-107) L 06/12/22 18:17 Carbon Dioxide 23 mmol/L (22-29) 06/12/22 18:17 Anion Gap 18.9 (5-19) 06/12/22 18:17 BUN 5 mg/dL (6-20) L 06/12/22 18:17 Creatinine 0.6 mg/dL (0.5-0.9) 06/12/22 18:17 GFR Calculation 108.1 mL/min (90-130) 06/12/22 18:17 Glucose 108 mg/dL (65-115) 06/12/22 18:17 Calculated Osmolality 278 mOsm/kg (285-295) L 06/12/22 18:17 Calcium 8.9 mg/dL (8.5-10.5) 06/12/22 18:17 Total Bilirubin 0.3 mg/dL (0.15-1.2) 06/12/22 18:17 AST 17 U/L (0-32) 06/12/22 18:17 ALT 12 U/L (0-33) 06/12/22 18:17 Alkaline Phosphatase 95 IU/L (35-105) 06/12/22 18:17 Troponin T Baseline 6 ng/L (0-10) 06/12/22 18:17 Total Protein 7.5 g/dL (6.6-8.7) 06/12/22 18:17 Albumin 4.1 g/dL (3.5-5.2) 06/12/22 18:17 Globulin 3.4 g/dL (1.3-4.6) 06/12/22 18:17 Lipase 22 U/L (13-60) 06/12/22 18:17 Discharge Plan Discharge Condition: Stable Prescriptions: No Action buspirone 10 mg tablet 20 mg PO TID 30 Days Qty: 180 2RF duloxetine [Cymbalta] 60 mg capsule,delayed release(DR/EC) 120 mg PO DAILY Qty: 60 2RF hydroxyzine HCl 50 mg tablet 50 mg PO QID PRN (Reason: insomnia/anxiety) Qty: 120 2RF prazosin 5 mg capsule 10 mg PO .HS Qty: 60 2RF trazodone 100 mg tablet 200 mg PO .HS PRN (Reason: insomnia) Qty: 60 2RF albuterol sulfate 90 mcg/actuation HFA aerosol inhaler 2 puff INHALATION Q6H PRN0RF fluticasone propion-salmeterol [Advair Diskus] 250-50 mcg/dose blister with device 1 inh INHALATION BID 0RF Spiriva Respimat 1.25 mcg/actuation mist 2 puff INHALATION DAILY 0RF levothyroxine 25 mcg capsule 25 mcg PO DAILY 0RF propranolol 40 mg tablet 20 mg PO DAILY 0RF azithromycin 250 mg tablet See Rx Instructions .ROUTE .COMPLEX 0RF Label Comments: Pt states done with this medicine. Rx Instructions: take 500 mg today (day 1), then 250 mg for 4 days (days 2-5) Referrals: Sunita Meza FNP [Primary Care Provider] - Coding Level of Care Code ED Weld Technician for Danya Drummond
[2022-06-12 20:34] VITALS: BP 137/100; PULSE 89; RESP 19; O2SAT 98
--- NOTE | 2022-06-12 20:44 | ED_ITS ---
HPI - Nausea/Vomiting/Diarrhea General: Chief complaint: Nausea/Vomiting/Diarrhea Stated complaint: weakness Time Seen by Provider: 06/12/22 20:26 History of Present Illness: Ms. Chappell is a 47-year-old lady with significant past medical history of STALIN/COPD overlap syndrome, psychiatric disorder, history of head injury, hepatitis C who presents to the emergency department due to men gianna status change. She reports feeling generalized illness on Friday 06/08 and on Friday developed nausea, vomiting, and diarrhea associated with subjective fevers chills. She denies chest pain or respiratory symptoms. Emesis and stool were nonbloody. This persisted until she went to bed and she reports that she did not wake up until today (06/12). She does not recall events in between then and now and did wake up in bed believing that she spent the entire time in bed. Denies similar episodes in the past. Intensity symptoms moderate. Course has persisted. No other specific changes in health, exacerbating, or alleviating factors identified. Review of Systems General: Reports: 10 or more systems reviewed and unremarkable except in HPI and below PFSH ED PFSH: Medical History Cholelithiasis COPD (chronic obstructive pulmonary disease) EtOH dependence Hepatitis C History of concussion Insomnia Post traumatic stress disorder (PTSD) Psychiatric care Surgical History History of hip replacement right History of tonsillectomy Family History Grandfather Cancer paternal lung cancer Other Diabetes Denies family history of Anesthesia complication Bleeding disorder Social History Smoking and tobacco status: current every day smoker cigarettes Packs smoked per day: 1 Years cigarettes smoked: 24 Quit status (tobacco): considering quitting Second hand smoke exposure: Yes Alcohol intake: never Household members: family Marital status: Single Current occupational status: employed History of recent travel: No Current gender identity: Female Female Reproductive History: Date of last menstrual period: 06/18/20 Physical Exam Const: COMMON NORMALS: patient oriented x3 and alert GENERAL APPEARANCE: c ooperative and well developed HENMT: COMMON NORMALS: normocephalic and atraumatic HEAD & SCALP: normocephalic and atraumatic THROAT: posterior oropharynx normal Eye: COMMON NORMALS: conjunctivae normal CONJUNCTIVA: Yes conjunctivae normal SCLERA: sclerae normal Neck/C-Spine: COMMON NORMALS: supple GENERAL: Yes trachea midline Resp: COMMON NORMALS: normal respiratory effort EFFORT & INSPECTION: Yes able to speak in complete sentences AUSCULTATION: wheezes (Mild end expiratory) and diminished lung sounds Cardio: COMMON NORMALS: regular rate and regular rhythm RATE: regular rate RHYTHM: regular rhythm GI: COMMON NORMALS: Soft to palpation PALPATION: Yes Soft to palpation, Yes Tenderness to palpation present (GI), No Guarding due to palpation present (GI) and No Rigid due to palpation Extremity: GENERAL: Yes normal exam except as noted and No edema Neuro: COMMON NORMALS: patient oriented x3, CN's II-XII intact bilaterally, moves all extremities, no focal motor deficits, no sensory deficits noted and gait normal SENSORIUM/ORIENTATION: Yes alert and No Orientation impaired Psych: COMMON NORMALS: mental status grossly normal and Normal thought process present THOUGHT PROCESS: Normal thought process present Course ED course: - Patient was seen and evaluated by me at bedside - Patient placed on cardiac monitors, IV access obtained - Initial evaluation notable for exam as above. No focal deficits - Labs and xrays personally interpreted by me. EKG with sinus rhythm, no STEMI - Fluids, antiemetic given - Labs notable for leukocytosis, normal hemoglobin. Metabolic end with mild evidence of dehydration, hypokalemia noted. Potassium replacement ordered. No evidence of urinary tract infection. - Imaging notable for no acute pathology identified on CT head, chest/abdomen/pelvis to explain symptoms. Gallstones discussed with patient. - Upon serial reexamination after treatment the patient was improved. She was able to tolerate p.o. intake - Based on patient history, evaluation, and testing as interpreted the most likely cause of the patient's condition is unclear - The results of ED evaluation were discussed with the patient including disposition options. Given the patient's reported sleeping for multiple days without waking up I did recommend inpatient admission as I do not have a clear explanation which the patient declined. This is probably reasonable as there are no focal findings on exam and it is unlikely that a life-threatening condition that persist for 3 days the degree of impaired consciousness was spontaneously resolved and patient would have current clinical appearance. I discussed prescriptions and/or symptomatic cares (if applicable) including appropriate and responsible use, followup plan, and return precautions. The patient verbalized understanding and felt safe for discharge. - Patient discharged in satisfactory condition. Note: Click bubbles or prepopulated weeks in note writing are used for assistance with data collection and billing and are inherently more limited than narrative and other text portions of this note. Please use narrative for additional clinical history and defer to narrative/free test for any case of contradictory information. If information appears in only free text or click bubble it should be considered present or absent as reported. Please contact note screenplay writer for clarifications of clinical information or contradictory information. MDM is a brief summary, contradictory or erroneous seeming information should be clarified and full note should be reviewed. Vital Signs: Vital signs: Vital Signs Temperature 98.9 F 06/12/22 17:05 Pulse Rate 70 06/13/22 00:26 Respiratory Rate 18 06/13/22 00:26 Blood Pressure 125/88 06/13/22 00:26 Pulse Oximetry 95 06/13/22 00:26 Oxygen Delivery Me thod 06/12/22 21:52 MDM - Nausea/Vomiting/Diarrhea Medical Decision Making 47-year-old lady presenting with generalized illness preceding multiple days of sleeping without reported awakening. Mild evidence of dehydration on ED evaluation. Patient felt improved with treatment. Recommended admission however patient prefers to be discharged. Return precautions given. Medical Records I reviewed the patient's medical records. Lab Data I reviewed the patient's lab results. : 06/12/22 18:17 06/12/22 18:17 Radiology Impressions Chest/Abdomen/Pelvis CT 06/12/22 20:52 IMPRESSION: No acute findings. IMPRESSION: Solitary gallstone within the gallbladder. Head CT 06/12/22 20:52 IMPRESSION: No acute intracranial abnormality. Laboratory Results WBC 11.6 10^3/uL (4.0-10.0) H 06/12/22 18:17 RBC 5.12 10^6/uL (4.1-5.3) 06/12/22 18:17 Hgb 14.6 g/dL (11.5-15.3) 06/12/22 18:17 Hct 46.0 % (37.0-47.0) 06/12/22 18:17 MCV 89.8 fl (81-99) 06/12/22 18:17 MCH 28.5 pg (28.0-34.0) 06/12/22 18:17 MCHC 31.7 g/dL (30.0-36.0) 06/12/22 18:17 RDW 15.0 % (12.1-15.1) 06/12/22 18:17 Plt Count 380 10^3/cmm (130-400) 06/12/22 18:17 MPV 10.0 fL (7.4-10.4) 06/12/22 18:17 Neut % (Auto) 64.8 % 06/12/22 18:17 Lymph % (Auto) 26.6 % 06/12/22 18:17 [place] % (Auto) 7.1 % 06/12/22 18:17 Eos % (Auto) 0.9 % 06/12/22 18:17 Baso % (Auto) 0.2 % 06/12/22 18:17 Neut # (Auto) 7.55 10^3/uL (1.8-7.7) 06/12/22 18:17 Lymph # (Auto) 3.1 10^3/uL (0.8-4.8) 06/12/22 18:17 [place] # (Auto) 0.8 10^3/uL (0.2-0.9) 06/12/22 18:17 Eos # (Auto) 0.1 10^3/uL (0.0-0.8) 06/12/22 18:17 Baso # (Auto) 0.0 10^3/uL (0.0-0.1) 06/12/22 18:17 Nucleated RBC % (auto) 0 % 06/12/22 18:17 Nucleated RBCs # 0.0 /100WBC 06/12/22 18:17 Sodium 135 mmol/L (136-145) L 06/12/22 18:17 Potassium 2.9 mmol/L (3.5-5.1) L 06/12/22 18:17 Chloride 96 mmol/L (98-107) L 06/12/22 18:17 Carbon Dioxide 23 mmol/L (22-29) 06/12/22 18:17 Anion Gap 18.9 (5-19) 06/12/22 18:17 BUN 5 mg/dL (6-20) L 06/12/22 18:17 Creatinine 0.6 mg/dL (0.5-0.9) 06/12/22 18:17 GFR Calculation 108.1 mL/min (90-130) 06/12/22 18:17 Glucose 108 mg/dL (65-115) 06/12/22 18:17 Calculated Osmolality 278 mOsm/kg (285-295) L 06/12/22 18:17 Calcium 8.9 mg/dL (8.5-10.5) 06/12/22 18:17 Magnesium 1.9 mg/dL (1.7-2.3) 06/12/22 18:17 Total Bilirubin 0.3 mg/dL (0.15-1.2) 06/12/22 18:17 AST 17 U/L (0-32) 06/12/22 18:17 ALT 12 U/L (0-33) 06/12/22 18:17 Alkaline Phosphatase 95 IU/L (35-105) 06/12/22 18:17 Troponin T Baseline 6 ng/L (0-10) 06/12/22 18:17 Troponin T 120 Minute 6.40 ng/L (0-10) 06/12/22 20:30 Delta Troponin T 0.40 ABS# (0-10) 06/12/22 20:30 Total Protein 7.5 g/dL (6.6-8.7) 06/12/22 18:17 Albumin 4.1 g/dL (3.5-5.2) 06/12/22 18:17 Globulin 3.4 g/dL (1.3-4.6) 06/12/22 18:17 Lipase 22 U/L (13-60) 06/12/22 18:17 HCG, Qual Negative (Negative) 06/12/22 21:40 Urine Color Colorless (Yellow) 06/12/22 21:40 Urine Appearance Clear (CLEAR) 06/12/22 21:40 Urine pH 6 (5-7) 06/12/22 21:40 Ur Specific Roundup 1.010 (1.005-1.030) 06/12/22 21:40 Urine Protein Neg (Negative) 06/12/22 21:40 Urine Glucose (UA) Norm (Normal) 06/12/22 21:40 Urine Ketones Negative (Negative) 06/12/22 21:40 Urine Blood Neg (Negative) 06/12/22 21:40 Urine Nitrate Negative (Negative) 06/12/22 21:40 Urine Bilirubin Neg (Negative) 06/12/22 21:40 Urine Urobilinogen Norm mg/dL (Negative) 06/12/22 21:40 Ur Leukocyte Esterase Negative (Negative) 06/12/22 21:40 Salicylates < 0.3 mg/dL (3-10) L 06/12/22 18:17 Urine Opiates Screen Negative ng/mL (Negative) 06/12/22 21:40 Acetaminophen < 5.0 ug/mL (10-30) L 06/12/22 18:17 Ur Barbiturates Screen Negative ng/mL (Negative) 06/12/22 21:40 Ur Phencyclidine Scrn Negative ng/mL (Negative) 06/12/22 21:40 Ur Amphetamines Screen Negative ng/mL (Negative) 06/12/22 21:40 U Benzodiazepines Scrn Negative ng/mL (Negative) 06/12/22 21:40 Urine Cocaine Screen Negative ng/mL (Negative) 06/12/22 21:40 U Marijuana (THC) Screen Positive ng/mL (Negative) H 06/12/22 21:40 Ethyl Alcohol < 10 mg/dL (0-10) 06/12/22 18:17 Influenza Type A Ag Negative (Negative) 06/12/22 20:31 Influenza Type B Ag Negative (Negative) 06/12/22 20:31 SARS-CoV-2 Ag (Rapid) Negative (Negative) 06/12/22 20:31 Discharge Plan Discharge Patient Disposition: Home Clinical Impression: Transient neurological symptoms, Hypokalemia Condition: Stable Prescriptions: No Action buspirone 10 mg tablet 20 mg PO TID 30 Days Qty: 180 2RF duloxetine [Cymbalta] 60 mg capsule,delayed release(DR/EC) 120 mg PO DAILY Qty: 60 2RF hydroxyzine HCl 50 mg tablet 50 mg PO QID PRN (Reason: insomnia/anxiety) Qty: 120 2RF albuterol sulfate 90 mcg/actuation HFA aerosol inhaler 2 puff INHALATION Q6H PRN (Reason: Shortness Of Breath) fluticasone propion-salmeterol [Advair Diskus] 250-50 mcg/dose blister with device 1 inh INHALATION BID Spiriva Respimat 1.25 mcg/actuation mist 2 puff INHALATION DAILY levothyroxine 25 mcg capsule 25 mcg PO DAILY pantoprazole 40 mg tablet,delayed release (DR/EC) 40 mg PO DAILY prazosin 5 mg capsule 10 mg PO BEDTIME trazodone 100 mg tablet 200 mg PO BEDTIME PRN (Reason: insomnia) Discharge Orders: Discharge ED (Routine); Ordered 06/13/22 Ordered By: Ford Blum Referrals: Sunita Meza FNP [Primary Care Provider] - Discharge Diet: Usual diet Discharge Activity: Limit activity as instructed Patient Instructions: Dehydration (ED), Hypokalemia (ED), Altered Mental Status (ED) Activity Restrictions/Additional Instructions: Thank you for visiting the emergency department. You were seen and evaluated for episode of alteration in consciousness. The exact cause of the symptoms is unclear. I recommend admission which you are declining at this time. Please follow-up with your primary care provider. Given uncertain cause high recommend avoiding driving or operating heavy machinery, do not take baths and bath tubs or swim, do not cook over open flames, do not perform other tasks that would be dangerous if you were to have another event. Follow-up with your primary care provider. I recommend repeat labs in 1 week to ensure that potassium is improved. Please return to the emergency department for recurrent symptoms, any new neurologic deficits, or anything else that you are concerned about and feel needs emergency department evaluation. Stand Alone Forms: Work/School Release Coding Level of Care Code ED Search Engine Marketing Specialist for Danya Fwkarissa Exam Comprehensive
[2022-06-12 20:45] VITALS: BP 140/100; PULSE 84; RESP 18; O2SAT 95
--- NOTE | 2022-06-12 20:52 | CTR_ITS ---
PROCEDURE INFORMATION: Exam: CT Head Without Contrast Exam date and time: 06/12/2022 9:19 PM Age: 47 years old Clinical indication: Altered mental status/memory loss; Patient HX: Patient states she woke up today from being asleep the last four days. Says she is out of her medications for psychiatric disorder. History of insomnia. ; Additional info: Loc, prolonged TECHNIQUE: Imaging protocol: Computed tomography of the head without contrast. Radiation optimization: All CT scans at this facility use at least one of these dose optimization techniques: automated exposure control; mA and/or kV adjustment per patient size (includes targeted exams where dose is matched to clinical indication); or iterative reconstruction. COMPARISON: none available. RADIATION DOSE METRICS: Total DLP (mGy-cm): 1008.48 FINDINGS: Brain: Normal. No hemorrhage or evidence of acute infarction. No mass effect. Cerebral ventricles: No ventriculomegaly. Paranasal sinuses: Visualized sinuses are unremarkable. No fluid levels. Mastoid air cells: Visualized mastoid air cells are well aerated. Bones/joints: Unremarkable. No acute fracture. Soft tissues: Unremarkable. CT/CT head wo con* [id number] IMPRESSION: No acute intracranial abnormality.
--- NOTE | 2022-06-12 20:52 | CTR_ITS ---
PROCEDURE INFORMATION: Exam: CT Chest Without Contrast; Diagnostic Exam date and time: 06/12/2022 9:23 PM Age: 47 years old Clinical indication: Nausea and other: Diarrhea; Smoker's cough; Patient HX: C/O chest discomfort with n/v/d. ; Additional info: N/v/d, chest pain, prolonged loc TECHNIQUE: Imaging protocol: Diagnostic computed tomography of the chest without contrast. Radiation optimization: All CT scans at this facility use at least one of these dose optimization techniques: automated exposure control; mA and/or kV adjustment per patient size (includes targeted exams where dose is matched to clinical indication); or iterative reconstruction. COMPARISON: CR XR chest 2V* [id number] 02/27/2022 11:58 AM RADIATION DOSE METRICS: Total DLP (mGy-cm): 1359.08 FINDINGS: Lungs: See Lymph nodes finding. Pleural spaces: Unremarkable. No pneumothorax. No pleural effusion. Heart: No obvious coronary artery calcifications. No cardiomegaly. No pericardial effusion. Lymph nodes: Calcified right hilar nodes and/or mediastinal nodes and/or lung granulomas consistent with old granulomatous disease. Vasculature: Unremarkable. No aortic aneurysm. Bones/joints: Unremarkable. No acute fracture. Soft tissues: Unremarkable. PROCEDURE INFORMATION: Exam: CT Abdomen And Pelvis Without Contrast Exam date and time: 06/12/2022 9:23 PM Age: 47 years old Clinical indication: Nausea and other: Diarrhea; Smoker's cough; Patient HX: C/O chest discomfort with n/v/d. ; Additional info: N/v/d, chest pain, prolonged loc TECHNIQUE: Imaging protocol: Computed tomography of the abdomen and pelvis without contrast. Radiation optimization: All CT scans at this facility use at least one of these dose optimization techniques: automated exposure control; mA and/or kV adjustment per patient size (includes targeted exams where dose is matched to clinical indication); or iterative reconstruction. COMPARISON: CR XR chest 2V* [id number] 02/27/2022 11:58 AM RADIATION DOSE METRICS: Total DLP (mGy-cm): 1359.08 FINDINGS: Liver: Normal. No mass. Gallbladder and bile ducts: Solitary gallstone within the gallbladder. Pancreas: Normal. No ductal dilation. Spleen: Normal. No splenomegaly. Adrenal glands: Normal. No mass. Kidneys and ureters: Normal. No hydronephrosis. Stomach and bowel: Unremarkable. No obstruction. No mucosal thickening. Appendix: No evidence of appendicitis. Intraperitoneal space: Unremarkable. No free air. No significant fluid collection. Vasculature: One or more calcified pelvic phleboliths. One or more calcified pelvic phleboliths. Lymph nodes: Unremarkable. No enlarged lymph nodes. Urinary bladder: Unremarkable as visualized. Reproductive: Unremarkable as visualized. Bones/joints: Mild L4-L5 central spinal stenosis. Soft tissues: Unremarkable. CT/[place] [id number] IMPRESSION: No acute findings. IMPRESSION: Solitary gallstone within the gallbladder.
[2022-06-12 21:12] LABS: Influenza A by IFA Negative (Negative); Influenza B by IFA Negative (Negative); SARS Covid-2 Antigen Negative (Negative)
[2022-06-12] MEDS: ondansetron 2 mg/ML SDV 2 mL 4 MG IVP (21:13)
[2022-06-12] MEDS: sodium chloride 0.9% 1,000 ML 999 ML IV (21:13)
[2022-06-12] MEDS: lidocaine 1% 5 ML in potassium chloride premix 100 ML 25 ML IV (21:14)
[2022-06-12 21:41] LABS: Acetaminophen < 5.0 ug/mL (10-30); Alcohol Level < 10 mg/dL (0-10); Salicylate < 0.3 mg/dL (3-10)
[2022-06-12 21:43] LABS: Add Urine Microscopic? NO; Charge for UA Resulting for Rev
[2022-06-12 21:47] LABS: Magnesium 1.9 mg/dL (1.7-2.3)
[2022-06-12 21:47] LABS: Bilirubin Urine Neg (Negative); Blood Urine Neg (Negative); Glucose Urine UA Norm (Normal); HCG Qualitative Urine. Negative (Negative); Ketones Urine Negative (Negative); Leukocyte Esterase Urine Negative (Negative); Nitrate Urine Negative (Negative); Protein Urine Neg (Negative); Urine Appearance Clear (CLEAR); Urine Color Colorless (Yellow); Urobilinogen Urine Norm (Negative); pH Urine 6 (5-7)
[2022-06-12 21:52] VITALS: BP 141/109; PULSE 76; RESP 18; O2SAT 93
[2022-06-12 21:53] LABS: Amphetamines Screen Urine Negative (Negative); Barbiturates Screen Urine Negative (Negative); Benzodiazepines Screen Urine Negative (Negative); Cocaine Screen Urine Negative (Negative); Opiate Screen Urine Negative (Negative); PCP Screen Urine Negative (Negative); THC Screen Urine Positive (Negative)
--- NOTE | 2022-06-12 23:16 | PC.NURSE ---
Pt unable to tolerate IV potassium, K rider stopped and discontinued. Physician ordered PO K+.
[2022-06-12] MEDS: potassium chloride ER 20 mEq Tablet 40 MEQ PO (23:31)
[2022-06-13 00:26] VITALS: BP 125/88; PULSE 70; RESP 18; O2SAT 95
== END 2022-06-13 00:27 | disposition home or self-care (01) ==
PROVIDERS: Emergency Medicine; Emergency Provider Emergency Medicine; PCP Nurse Practitioner Family
DX: R29.818 Other symptoms and signs involving the nervous system (principal); E87.6 Hypokalemia; J44.9 Chronic obstructive pulmonary disease, unspecified; Z86.19 Personal history of other infectious and parasitic diseases; F17.210 Nicotine dependence, cigarettes, uncomplicated; Z20.822 Contact with and (suspected) exposure to COVID-19
CPT/HCPCS: 70450; 71250; 74176; 80053; 80306; 80307; 81003; 81025; 83690; 83735; 84484; 85025; 87426; 87804; 93005; 96365; 96366; 96375; 99285; J2405; J3480; J7030

== ENCOUNTER 2022-10-09 15:46 | Outpatient (CLI) | payer MEDICAID, SELFPAY ==
--- NOTE | 2022-10-09 15:56 | XR_ITS ---
WS: [id number] Exam: XR shoulder LT min 2V* [id number] Date/Time of Exam: 10/09/2022 3:56 PM Reason For Exam: SHOULDER PAIN No fracture or dislocation. Soft tissues are unremarkable. Slight arthrosis at the AC joint. XR/XR shoulder LT min 2V* [id number] IMPRESSION: 1. No fracture or dislocation noted.
--- NOTE | 2022-10-09 15:56 | XR_ITS ---
WS: [id number] Exam: XR knee RT 3V* [id number] Date/Time of Exam: 10/09/2022 3:56 PM Reason For Exam: KNEE PAIN Comparison 07/18/2007. No fracture or dislocation. The joint compartments are relatively well maintained. No joint effusion. There is spurring of the tibial spines and posterior patella. There are 2 ovoid ossified densities a long the posterior joint compartment that are probably synovial osteochondromas. These were not ident ified on the prior study. Soft tissues are otherwise unremarkable. XR/XR knee RT 3V* [id number] IMPRESSION: 1. Minimal degenerative changes as noted above. 2. No fracture or joint effusion. 3. Ovoid ossified densities seen along the posterior aspect of the knee probabl y synovial osteochondromas in the posterior joint capsule.
== END 2022-10-09 15:47 | disposition home or self-care (01) ==
PROVIDERS: PCP Nurse Practitioner Family; Visit Provider Nurse Practitioner Family
DX: M25.512 Pain in left shoulder (principal); M25.561 Pain in right knee
CPT/HCPCS: 73030; 73562

== ENCOUNTER 2022-10-13 09:12 | Emergency (ER) | payer MEDICAID, SELFPAY ==
[2022-10-13 09:21] VITALS: BP 135/85; PULSE 83; RESP 28; TEMP 35.9; O2SAT 96
--- NOTE | 2022-10-13 09:38 | XRR_ITS ---
PROCEDURE INFORMATION: Exam: XR Chest Exam date and time: 10/13/2022 10:43 AM Age: 47 years old Clinical indication: Cough TECHNIQUE: Imaging protocol: Radiologic exam of the chest. Views: 2 views. COMPARISON: [place] [id number] 06/12/2022 9:23 PM FINDINGS: Lungs: Unremarkable. No consolidation. Pleural spaces: Unremarkable. No pleural effusion. No pneumothorax. Heart/Mediastinum: Unremarkable. No cardiomegaly. Bones/joints: Unremarkable. XR/XR chest 2V* [id number] IMPRESSION: No acute findings.
--- NOTE | 2022-10-13 09:42 | W.ED.FEVER ---
HPI - Fever General: Chief Complaint: Shortness of Breath/Dyspnea Stated Complaint: SOB, cough Time Seen by Provider: 10/13/22 09:27 History of Present Illness: 47-year-old female presents with cough, fever, body aches, generalized malaise, feeling of shortness of breath. She reports her symptoms started yesterday. She reports that she has a productive cough with green mucus. Patient denies abdominal pain, nausea vomiting diarrhea. Associated symptoms: Reports chills; Deny abdominal pain, flank pain, chest pain, headache(s), nausea or vomiting Review of Systems Const: Reports: fever(s), chills, body aches and malaise Eyes: Denies: change in vision or eye discharge ENMT: Denies: throat pain or ear or mastoid pain Card: Denies: chest pain or palpitations Resp: Reports: dyspnea and productive cough; Denies: wheezing GI: Denies: abdominal pain, nausea or vomiting : Denies: flank pain or difficulty voiding Musc: Reports: other (Generalized body aches) Skin/Breast: Denies: rash or erythema Neuro: Denies: headache(s) or dizziness PFSH ED PFSH: Medical History Cholelithiasis COPD (chronic obstructive pulmonary disease) EtOH dependence Hepatitis C History of concussion Insomnia Post traumatic stress disorder (PTSD) Psychiatric care Surgical History History of hip replacement right History of tonsillectomy Family History Grandfather Cancer paternal lung cancer Other Diabetes Denies family history of Anesthesia complication Bleeding disorder Social History (Updated 10/10/22 @ 12:03 by Ford Mortensen LPN) Smoking and tobacco status: current every day smoker cigarettes Packs smoked per day: 1 Years cigarettes smoked: 24 Quit status (tobacco): has tried quititng Number of times tried to quit tobacco: 3 Second hand smoke exposure: No Smoking risk assessment/counseling performed?: No Alcohol intake: former Desire information about alcohol rehabilitation?: No Counseling given: No Desire information about substance/drug rehabilitation?: No Counseling given: No Household members: family Marital status: Single Current occupational status: employed History of recent travel: No Current gender identity: Female Female Reproductive History: Date of last menstrual period: 06/18/20 Physical Exam Const: COMMON NORMALS: no acute distress, patient oriented x3 and alert HENMT: COMMON NORMALS: normocephalic, hearing grossly normal bilaterally and moist oral mucous membranes HEAD & SCALP: normocephalic Eye: COMMON NORMALS: EOMs intact bilaterally and conjunctivae normal CONJUNCTIVA: Yes conjunctivae normal Chest: CHEST: Yes Symmetrical chest wall rise Resp: COMMON NORMALS: clear to auscultation bilaterally EFFORT & INSPECTION: Yes able to speak in complete sentences and No respiratory distress AUSCULTATION: clear to auscultation bilaterally Cardio: COMMON NORMALS: regular rate and regular rhythm RATE: regular rate RHYTHM: regular rhythm GI: COMMON NORMALS: Soft to palpation PALPATION: Yes Soft to palpation and No Tenderness to palpation present (GI) Extremity: COMMON NORMALS: full ROM and capillary refill normal Neuro: COMMON NORMALS: patient oriented x3, moves all extremities, no focal motor deficits and no sensory deficits noted SENSORIUM/ORIENTATION: Yes alert Psych: COMMON NORMALS: mental status grossly normal, Normal thought process present and speech normal SPEECH: Yes normal speech THOUGHT PROCESS: Normal thought process present Skin: COMMON NORMALS: no rashes or lesions noted and turgor normal GENERAL SKIN EXAM: no rashes or lesions noted and turgor normal Course Vital Signs: Vital signs: Vital Signs Temperature 96.7 F L 10/13/22 09:21 Pulse Rate 84 10/13/22 10:45 Respiratory Rate 18 10/13/22 10:45 Blood Pressure 135/85 10/13/22 09:21 Pulse Oximetry 96 10/13/22 10:45 Oxygen Delivery Me thod 10/13/22 10:45 MDM - Fever Medical Decision Making Patient positive for influenza A. Patient will be given a prescription for Tamiflu however did discuss with her that she would have difficulty finding it as all pharmacies are currently out. We did provide her 40 mEq of potassium and recommend she takes potassium for couple days and follows up to have it rechecked in about a week. I will provide her with a work note for the next couple days off. She is stable and discharged home Lab Data 10/13/22 10:05 10/13/22 10:05 Radiology Impressions Chest X-Ray 10/13/22 09:38 IMPRESSION: No acute findings. Laboratory Results WBC 8.3 10^3/uL (4.0-10.0) 10/13/22 10:05 RBC 4.27 10^6/uL (4.1-5.3) 10/13/22 10:05 Hgb 12.4 g/dL (11.5-15.3) 10/13/22 10:05 Hct 37.5 % (37.0-47.0) 10/13/22 10:05 MCV 87.8 fl (81-99) 10/13/22 10:05 MCH 29.0 pg (28.0-34.0) 10/13/22 10:05 MCHC 33.1 g/dL (30.0-36.0) 10/13/22 10:05 RDW 14.3 % (12.1-15.1) 10/13/22 10:05 Plt Count 265 10^3/cmm (130-400) 10/13/22 10:05 MPV 9.6 fL (7.4-10.4) 10/13/22 10:05 Neut % (Auto) 84.5 % 10/13/22 10:05 Lymph % (Auto) 8.7 % 10/13/22 10:05 Bulloch % (Auto) 5.7 % 10/13/22 10:05 Eos % (Auto) 0.4 % 10/13/22 10:05 Baso % (Auto) 0.2 % 10/13/22 10:05 Neut # (Auto) 7.02 10^3/uL (1.8-7.7) 10/13/22 10:05 Lymph # (Auto) 0.7 10^3/uL (0.8-4.8) L 10/13/22 10:05 Bulloch # (Auto) 0.5 10^3/uL (0.2-0.9) 10/13/22 10:05 Eos # (Auto) 0.0 10^3/uL (0.0-0.8) 10/13/22 10:05 Baso # (Auto) 0.0 10^3/uL (0.0-0.1) 10/13/22 10:05 Nucleated RBC % (auto) 0 % 10/13/22 10:05 Nucleated RBCs # 0.0 /100WBC 10/13/22 10:05 Sodium 135 mmol/L (136-145) L 10/13/22 10:05 Potassium 2.7 mmol/L (3.5-5.1) L* 10/13/22 10:05 Chloride 97 mmol/L (98-107) L 10/13/22 10:05 Carbon Dioxide 27 mmol/L (22-29) 10/13/22 10:05 Anion Gap 13.7 (5-19) 10/13/22 10:05 BUN 5 mg/dL (6-20) L 10/13/22 10:05 Creatinine 0.7 mg/dL (0.5-0.9) 10/13/22 10:05 GFR Calculation 90.5 mL/min (90-130) 10/13/22 10:05 Glucose 101 mg/dL (65-115) 10/13/22 10:05 Calculated Osmolality 277 mOsm/kg (285-295) L 10/13/22 10:05 Calcium 8.4 mg/dL (8.5-10.5) L 10/13/22 10:05 Nasal Influ A H1 2009 PCR Detected (NOT DETECT) A 10/13/22 12:50 Coronavirus 229E (PCR) Not detected (NOT DETECT) 10/13/22 09:54 Influenza A (H1) PCR Not detected (NOT DETECT) 10/13/22 12:50 Influenza A (H3) PCR Not detected (NOT DETECT) 10/13/22 12:50 Influenza Type A (PCR) Detected (NOT DETECT) A 10/13/22 12:50 Influenza Type B (PCR) Not detected (NOT DETECT) 10/13/22 12:50 SARS-CoV-2 (PCR) Not detected (NOT DETECT) 10/13/22 09:54 Discharge Plan Discharge Patient Disposition: Home Clinical Impression: Influenza A, Acute hypokalemia Condition: Stable Prescriptions: New Tamiflu 75 mg capsule 75 mg PO Q12H 5 Days Qty: 10 0RF potassium chloride 20 mEq tablet extended release 20 meq PO DAILY Qty: 7 0RF No Action albuterol sulfate 90 mcg/actuation HFA aerosol inhaler 2 puff INHALATION Q6H PRN (Reason: Shortness Of Breath) fluticasone propion-salmeterol [Advair Diskus] 250-50 mcg/dose blister with device 1 inh INHALATION BID Spiriva Respimat 1.25 mcg/actuation mist 2 puff INHALATION DAILY levothyroxine 25 mcg capsule 25 mcg PO DAILY buspirone 10 mg tablet 20 mg PO TID 30 Days Qty: 180 2RF duloxetine [Cymbalta] 60 mg capsule,delayed release(DR/EC) 120 mg PO DAILY Qty: 60 2RF hydroxyzine HCl 50 mg tablet 50 mg PO QID PRN (Reason: insomnia/anxiety) Qty: 120 2RF prazosin 5 mg capsule 10 mg PO BEDTIME Qty: 60 2RF trazodone 100 mg tablet 200 mg PO BEDTIME PRN (Reason: insomnia) Qty: 60 2RF pantoprazole 40 mg tablet,delayed release (DR/EC) 40 mg PO DAILY Discharge Orders: Discharge ED (Routine); Ordered 10/13/22 Ordered By: Cisco Bobby Referrals: Sunita Meza FNP [Primary Care Provider] - Discharge Diet: Usual diet Discharge Activity: Resume usual activity Patient Instructions: Influenza (DC), Opioid Safety, Pain Management Activity Restrictions/Additional Instructions: Drink plenty of fluids, Tylenol and ibuprofen as needed for fever and body aches, [id number] cough medication as needed Stand Alone Forms: Work/School Release Coding Level of Care Code ED [employer] Supervisor for Danya Fwd Exam Comprehensive
[2022-10-13] MEDS: benzonatate 100 mg Capsule 200 MG PO (09:59)
[2022-10-13 10:21] LABS: Basophils % 0.2 %; Eosinophils % 0.4 %; Hematocrit 37.5 % (37.0-47.0); Hemoglobin 12.4 g/dL (11.5-15.3); Lymphocytes # 0.7 10^3/uL (0.8-4.8); Lymphocytes % 8.7 %; Mean Corpuscular HGB Conc 33.1 g/dL (30.0-36.0); Mean Corpuscular Volume 87.8 fl (81-99); Mean Platelet Volume 9.6 fL (7.4-10.4); Monocytes # 0.5 10^3/uL (0.2-0.9); Monocytes % 5.7 %; Neutrophils # 7.02 10^3/uL (1.8-7.7); Neutrophils % 84.5 %; Nucleated Red Blood Cells % 0 %; Platelet Count 265 10^3/cmm (130-400); Red Blood Count 4.27 10^6/uL (4.1-5.3); Red Cell Distribution Width 14.3 % (12.1-15.1); White Blood Count 8.3 10^3/uL (4.0-10.0)
[2022-10-13 10:34] LABS: Anion Gap 13.7 (5-19); Blood Urea Nitrogen 5 mg/dL (6-20); Calcium 8.4 mg/dL (8.5-10.5); Carbon Dioxide 27 mmol/L (22-29); Chloride 97 mmol/L (98-107); Glomerular Filtration Rate 90.5 mL/min (90-130); Glucose 101 mg/dL (65-115); Osmolality Calculated 277 mOsm/kg (285-295); Sodium 135 mmol/L (136-145)
[2022-10-13 10:45] VITALS: PULSE 84; RESP 18; O2SAT 96
[2022-10-13 10:49] LABS: Potassium 2.7 mmol/L (3.5-5.1)
--- NOTE | 2022-10-13 10:53 | PC.NURSE ---
critical lab KCL 2.7
[2022-10-13] MEDS: potassium chloride ER 20 mEq Tablet 40 MEQ PO (11:07)
[2022-10-13] MEDS: acetaminophen 325 mg Tablet 650 MG PO (11:45)
[2022-10-13 11:48] LABS: Adenovirus Not Detected (NOT DETECT); Chlamydia Pneumoniae Not Detected (NOT DETECT); Coronavirus 229E,HKU1,NL63,OC4 Not Detected (NOT DETECT); Human Metapneumovirus Not Detected (NOT DETECT); Human Rhinovirus/Enterovirus Not Detected (NOT DETECT); Influenza A Detected (NOT DETECT); Influenza A H1 Not Detected (NOT DETECT); Influenza A H1-2009 Detected (NOT DETECT); Influenza A H3 Not Detected (NOT DETECT); Influenza B Not Detected (NOT DETECT); Mycoplasma Pneumoniae Not Detected (NOT DETECT); Parainfluenza Virus Type 1 Not Detected (NOT DETECT); Parainfluenza Virus Type 2 Not Detected (NOT DETECT); Parainfluenza Virus Type 3 Not Detected (NOT DETECT); Parainfluenza Virus Type 4 Not Detected (NOT DETECT); Respiratory Syncytial Virus A Not Detected (NOT DETECT); Respiratory Syncytial Virus B Not Detected (NOT DETECT); SARS-COV-2 Not Detected (NOT DETECT)
[2022-10-13 12:50] LABS: Influenza A Detected (NOT DETECT); Influenza A H1 Not Detected (NOT DETECT); Influenza A H1-2009 Detected (NOT DETECT); Influenza A H3 Not Detected (NOT DETECT); Influenza B Not Detected (NOT DETECT); Results from Genmark
[2022-10-13 14:01] VITALS: BP 141/74; PULSE 86; RESP 20; O2SAT 95
== END 2022-10-13 14:00 | disposition home or self-care (01) ==
PROVIDERS: Emergency Provider Student in an Organized Health Care Education/Training Program; PCP Nurse Practitioner Family
DX: J10.1 Influenza due to other identified influenza virus with other respiratory manifestations (principal); E87.6 Hypokalemia; Z20.822 Contact with and (suspected) exposure to COVID-19; F17.210 Nicotine dependence, cigarettes, uncomplicated; J44.9 Chronic obstructive pulmonary disease, unspecified; Z86.19 Personal history of other infectious and parasitic diseases
CPT/HCPCS: 36415; 71046; 80048; 85025; 87631; 87635; 99284

== ENCOUNTER 2022-12-29 08:01 | Emergency (ER) | payer MEDICAID, SELFPAY ==
[2022-12-29 08:07] VITALS: BP 104/75; PULSE 71; RESP 16; O2SAT 97; BMI 32.4
--- NOTE | 2022-12-29 08:11 | W.ED.EXTPRO ---
HPI - Extremity Problem General: Chief complaint: Extremity Injury, Lower Stated complaint: left knee swollen Time Seen by Provider: 12/29/22 08:04 Source: patient Mode of arrival: ambulatory Limitations: no limitations History of Present Illness: 47-year-old female presents to the ER today for left knee pain for the last couple of days. Patient reports she usually has problems with her right knee and has seen orthopedics for that. Patient reports however the pain in the left knee is new. She reports pain is mostly in the back of the knee and describes it as a pulling sensation and also above the kneecap where she describes swelling. She reports she also feels a popping sensation above the left knee. No known injury in the last week or so. Patient has never had any imaging done of this knee. She does not take anything regularly for pain for this. Has taken [id number] medications with minimal improvement. Review of Systems General: Reports: 10 or more systems reviewed and unremarkable except in HPI and below PFSH ED PFSH: Medical History Cholelithiasis COPD (chronic obstructive pulmonary disease) EtOH dependence Hepatitis C History of concussion Insomnia Post traumatic stress disorder (PTSD) Psychiatric care Surgical History History of hip replacement right History of tonsillectomy Family History Grandfather Cancer paternal lung cancer Other Diabetes Denies family history of Anesthesia complication Bleeding disorder Social History Smoking and tobacco status: current every day smoker cigarettes Packs smoked per day: 1 Years cigarettes smoked: 24 Quit status (tobacco): has tried quititng Number of times tried to quit tobacco: 3 Second hand smoke exposure: No Smoking risk assessment/counseling performed?: No Alcohol intake: former Desire information about alcohol rehabilitation?: No Counseling given: No Desire information about substance/drug rehabilitation?: No Counseling given: No Household members: family Marital status: Single Current occupational status: employed History of recent travel: No Current gender identity: Female Female Reproductive History: Date of last menstrual period: 06/18/20 Physical Exam Const: COMMON NORMALS: no acute distress, average body habitus, patient oriented x3, no limitations, healthy appearing, alert and well nourished Resp: COMMON NORMALS: normal respiratory effort EFFORT & INSPECTION: Yes able to speak in complete sentences Cardio: COMMON NORMALS: regular rate, regular rhythm and No murmurs present (Cardio) RATE: regular rate RHYTHM: regular rhythm GI: COMMON NORMALS: Normal to inspection, nondistended, normoactive bowel sounds present, Soft to palpation and non-tender PALPATION: Yes Soft to palpation Back/Pelvis: COMMON NORMALS: thoraco-lumbar ROM normal Extremity: NARRATIVE EXTREMITY EXAM: No joint line tenderness noted of the left knee. No obvious swelling visualized however mild edema noted superior to the left patella. Ligaments and tendons appear stable. Normal range of motion. Patient ambulating without difficulty. Neuro: COMMON NORMALS: patient oriented x3 SENSORIUM/ORIENTATION: Yes alert Psych: COMMON NORMALS: mental status grossly normal, Normal thought process present and cooperative THOUGHT PROCESS: Normal thought process present Skin: COMMON NORMALS: no rashes or lesions noted and no wounds GENERAL SKIN EXAM: no rashes or lesions noted Course ED course: Patient presents for acute left knee pain without injury. We will get an x-ray. She is already established with Ortho. She is not taking anything at this time for pain. Vital Signs: Vital signs: Vital Signs Temperature 97.0 F L 12/29/22 08:14 Pulse Rate 71 12/29/22 08:40 Respiratory Rate 16 12/29/22 08:40 Blood Pressure 104/75 12/29/22 08:40 Pulse Oximetry 97 12/29/22 08:40 Oxygen Delivery Me thod 12/29/22 08:07 MDM - Extremity (Nontraumatic) Medical Decision Making Patient has no known injury to the left knee. Physical exam is mostly unremarkable. No bony abnormalities noted on x-ray. We will send home patient with diclofenac for inflammation. Silvestre wrap will be placed in the ER. Recommend rest, ice, and elevation. Follow-up with PCP in 5 to 7 days if no improvement. Also recommended patient contact Ortho since she has already established with them for follow-up on the left knee pain. Return to the ER with new or worsening symptoms. Patient verbalized understanding and was in agreement with the treatment plan. Critical Care Time Critical Care Time: Critical Care Time: No Discharge Plan Discharge Patient Disposition: Home Clinical Impression: Acute pain of left knee Condition: Stable Prescriptions: New diclofenac potassium 50 mg tablet 50 mg PO Q12H PRN (Reason: pain) Qty: 20 0RF No Action albuterol sulfate 90 mcg/actuation HFA aerosol inhaler 2 puff INHALATION Q6H PRN (Reason: Shortness Of Breath) fluticasone propion-salmeterol [Advair Diskus] 250-50 mcg/dose blister with device 1 inh INHALATION BID Spiriva Respimat 1.25 mcg/actuation mist 2 puff INHALATION DAILY levothyroxine 25 mcg capsule 25 mcg PO DAILY buspirone 10 mg tablet 20 mg PO TID 30 Days Qty: 180 1RF duloxetine [Cymbalta] 60 mg capsule,delayed release(DR/EC) 120 mg PO DAILY Qty: 60 1RF hydroxyzine HCl 50 mg tablet 50 mg PO QID PRN (Reason: insomnia/anxiety) Qty: 120 2RF prazosin 5 mg capsule 10 mg PO BEDTIME Qty: 60 2RF trazodone 100 mg tablet 200 mg PO BEDTIME PRN (Reason: insomnia) Qty: 60 2RF pantoprazole 40 mg tablet,delayed release (DR/EC) 40 mg PO DAILY potassium chloride 20 mEq tablet extended release 20 meq PO DAILY Qty: 7 0RF Discharge Orders: Discharge ED (Routine); Ordered 12/29/22 Ordered By: Aga Price Referrals: Pierre Mohr MD [Primary Care Provider] - Discharge Diet: Usual diet Discharge Activity: Increase activity as tolerated Patient Instructions: Opioid Safety, Pain Management Activity Restrictions/Additional Instructions: Rest, ice, and elevation recommended. Take diclofenac as prescribed. Wear Silvestre wrap as placed in the ER. Follow-up with PCP in 5 to 7 days if no improvement. Contact orthopedics for follow-up appointment also. Coding Level of Care Code ED Cooker Sulfite for Danya Fwd Exam Detailed
[2022-12-29 08:14] VITALS: TEMP 36.1
--- NOTE | 2022-12-29 08:15 | XRR_ITS ---
PROCEDURE INFORMATION: Exam: XR Left Knee Exam date and time: 12/29/2022 8:30 AM Age: 47 years old Clinical indication: Pain; Knee; Left; Additional info: Knee pain TECHNIQUE: Imaging protocol: Radiologic exam of the Left knee. Views: 3 views. COMPARISON: No relevant prior studies available. FINDINGS: Bones/joints: No fracture or dislocation. There is mild degenerative changes, manifested by small periarticular osteophytes in the patellofemoral compartment. Trace joint effusion seen. Soft tissues: Normal. XR/XR knee LT 3V* [id number] IMPRESSION: No acute findings.
[2022-12-29 08:40] VITALS: BP 104/75; PULSE 71; RESP 16; O2SAT 97
== END 2022-12-29 08:41 | disposition home or self-care (01) ==
PROVIDERS: Emergency Provider Physician Assistant; PCP Family Medicine
DX: M25.562 Pain in left knee (principal); J44.9 Chronic obstructive pulmonary disease, unspecified; Z86.19 Personal history of other infectious and parasitic diseases; F17.210 Nicotine dependence, cigarettes, uncomplicated
CPT/HCPCS: 73562; 99283

== ENCOUNTER 2023-07-27 10:39 | Emergency (ER) | payer MEDICAID, SELFPAY ==
[2023-07-27 10:55] VITALS: BP 135/97; PULSE 94; RESP 18; TEMP 37.3; O2SAT 98; BMI 30.7
--- NOTE | 2023-07-27 11:01 | ED_ITS ---
HPI - General Adult General: Chief complaint: General Medical Stated complaint: left leg pain, bloody stools, right side abd pain Time Seen by Provider: 07/27/23 10:58 Source: patient Mode of arrival: ambulatory History of Present Illness: 48-year-old female presents emergency room complaining of left leg pain right- sided abdominal pain and also has been having hematochezia last couple of days. Patient is quite tearful she has multiple seemingly unrelated complaints. She is compliant complaining about a swelling she has had at the posterior left knee for the last several days she feels like she is getting increased varicosities in the left lower leg accompanying that she is also complaining of swelling in the area of the collarbone on the left with what she feels is concurrent swelling on the left side of the face and the eyelid she felt her left eye was more reddened this morning than it was previously. Also complaining of right upper quadrant pain. Radiates a little into the back. She has not had any nausea or vomiting intermittently has cramping no hematemesis or coffee-ground emesis. She has not noticed anything that exacerbates or relieves this. Finally she states she has had bright red blood per rectum over the last couple of days. Reviewing her chart she has had issues with generalized anxiety in the past she has also previously complained of right knee swelling. She is had some hypokalemia in the past as well. Previous gallbladder ultrasound in June 2020 did show cholelithiasis but no acute cholecystitis. Onset (ago): day(s) Location: face, abdomen and lower extremity Radiation: back (Radiation of the upper right upper quadrant pain into the back) Severity: moderate Relieving factors: none Exacerbating factors: none Associated symptoms: Reports nausea; Deny chest pain, confusion, cough, diaphoresis, decreased appetite, dyspnea, fevers/chills, headache(s), malaise, rash, palpitations, seizures, short of breath, syncope, vomiting or weakness Review of Systems Const: Denies: fever(s), chills, fatigue, malaise or diaphoresis ENMT: Reports: throat pain Card: Denies: chest pain, palpitations or syncope Resp: Denies: dyspnea GI: Reports: abdominal pain and nausea; Denies: vomiting : Denies: flank pain, difficulty voiding, dysuria, urinary frequency or urinary urgency Musc: Reports: back pain (Radiating from the stomach) and joint pain (Left knee); Denies: neck pain Skin/Breast: Denies: rash Neuro: Denies: headache(s) or confusion PFSH ED PFSH: Medical History Cholelithiasis COPD (chronic obstructive pulmonary disease) EtOH dependence Hepatitis C History of concussion Insomnia Post traumatic stress disorder (PTSD) Psychiatric care Surgical History History of hip replacement right History of tonsillectomy Family History Grandfather Cancer paternal lung cancer Other Diabetes Denies family history of Anesthesia complication Bleeding disorder Social History Smoking and tobacco status: current every day smoker cigarettes Packs smoked per day: 1 Years cigarettes smoked: 24 Quit status (tobacco): has tried quititng Number of times tried to quit tobacco: 3 Second hand smoke exposure: No Smoking risk assessment/counseling performed?: No Alcohol intake: former Desire information about alcohol rehabilitation?: No Counseling given: No Substance/Drug Use: never Desire information about substance/drug rehabilitation?: No Counseling given: No Household members: family Marital status: Single Current occupational status: employed Current gender identity: Female Physical Exam Const: GENERAL APPEARANCE: cooperative and comfortable ORIENTATION/CONSCIOUSNESS: Yes awake, Yes oriented to person, Yes oriented to place and Yes oriented to time HENMT: COMMON NORMALS: normocephalic, atraumatic and hearing grossly normal bilaterally HEAD & SCALP: normocephalic and atraumatic Neck/C-Spine: OTHER: No lymphadenopathy no swelling no masses. Patient refers to discomfort on the left side of the neck no significant findings on observation or on physical exam by palpation. Resp: COMMON NORMALS: normal respiratory effort, No retractions, No use of accessory muscles and clear to auscultation bilaterally AUSCULTATION: clear to auscultation bilaterally Cardio: COMMON NORMALS: regular rate, regular rhythm and No murmurs present (Cardio) RATE: regular rate RHYTHM: regular rhythm GI: COMMON NORMALS: No hepatosplenomegaly present AUSCULTATION: Yes normoactive bowel sounds PALPATION: Yes Tenderness to palpation present (GI) Details: RUQ, No Guarding due to palpation present (GI) and Yes No hepatosplenomegaly present Extremity: COMMON NORMALS: normal to inspection, capillary refill normal and no calf tenderness OTHER: Palpable fullness moderately tender in the left popliteal fossa. Consistent with a Martinez's cyst. No significant varicosities no lower extremity edema negative Homans no sign of skin breakdown or ulceration. Neuro: SENSORIUM/ORIENTATION: Yes oriented to person, Yes oriented to place and Yes oriented to time Skin: COMMON NORMALS: no rashes or lesions noted GENERAL SKIN EXAM: no rashes or lesions noted Course Vital Signs: Vital signs: Vital Signs Temperature 99.2 F 07/27/23 10:55 Pulse Rate 72 07/27/23 13:49 Respiratory Rate 18 07/27/23 12:25 Blood Pressure 110/57 07/27/23 13:49 Pulse Oximetry 98 07/27/23 13:49 Oxygen Delivery Me thod Room Air 07/27/23 13:49 [facility] - General Adult Medical Decision Making Labs and imaging reviewed with the patient. She has a large left Martinez's cyst the remainder of her labs and work-up are normal exam is unremarkable. She has quite a bit of complaints multiple of them seemingly unrelated. Urine symptoms were clear she has not had any further rectal bleeding. Her hemoglobin is stable. She did test positive for methamphetamines and we discussed that she admitted to having recently done them. Discharge patient home follow-up with primary care. Encouraged her to abstain from methamphetamines as to the Martinez's cyst follow-up with primary care if felt appropriate they can refer her to Ortho discussed with her the generally they do not excise these. Medical Records I reviewed the patient's medical records. Lab Data I reviewed the patient's lab results. 07/27/23 11:25 07/27/23 11:25 Radiology Impressions Gallbladder Ultrasound 07/27/23 11:09 IMPRESSION: 1. Cholelithiasis without sonographic evidence of acute cholecystitis. 2. Fatty liver. Venous Duplex 07/27/23 11:09 IMPRESSION: 1. No sonographic evidence of deep vein thrombosis. 2. 2.9 x 3.1 x 5.9 cm complex popliteal cyst. Laboratory Results WBC 9.86 10^3/uL (3.29-11.43) 07/27/23 11:25 RBC 3.87 10^6/uL (3.85-5.65) 07/27/23 11:25 Hgb 11.30 g/dL (11.27-16.99) 07/27/23 11:25 Hct 34.2 % (36-47) L 07/27/23 11:25 MCV 88.4 fl (85-98) 07/27/23 11:25 MCH 29.2 pg (27-33) 07/27/23 11:25 MCHC 33.0 g/dL (30-55) 07/27/23 11:25 RDW 13.1 % (12.1-15.1) 07/27/23 11:25 Plt Count 284 10^3/cmm (157-399) 07/27/23 11:25 MPV 9.3 fL (7.4-10.4) 07/27/23 11:25 Neut % (Auto) 70.9 % 07/27/23 11:25 Lymph % (Auto) 17.5 % 07/27/23 11:25 [place] % (Auto) 8.5 % 07/27/23 11:25 Eos % (Auto) 2.4 % 07/27/23 11:25 Baso % (Auto) 0.3 % 07/27/23 11:25 Neut # (Auto) 6.98 10^3/uL (1.8-7.7) 07/27/23 11:25 Lymph # (Auto) 1.7 10^3/uL (0.8-4.8) 07/27/23 11:25 [place] # (Auto) 0.8 10^3/uL (0.2-0.9) 07/27/23 11:25 Eos # (Auto) 0.2 10^3/uL (0.0-0.8) 07/27/23 11:25 Baso # (Auto) 0.0 10^3/uL (0.0-0.1) 07/27/23 11:25 Nucleated RBC % (auto) 0 % 07/27/23 11:25 Nucleated RBCs # 0.0 /100WBC 07/27/23 11:25 Sodium 138 mmol/L (136-145) 07/27/23 11:25 Potassium 3.6 mmol/L (3.5-5.1) 07/27/23 11:25 Chloride 104 mmol/L (98-107) 07/27/23 11:25 Carbon Dioxide 23 mmol/L (22-29) 07/27/23 11:25 Anion Gap 14.6 (5-19) 07/27/23 11:25 BUN 6 mg/dL (6-20) 07/27/23 11:25 Creatinine 0.7 mg/dL (0.5-0.9) 07/27/23 11:25 GFR Calculation 90.1 mL/min (90-130) 07/27/23 11:25 Glucose 74 mg/dL (65-115) 07/27/23 11:25 Calculated Osmolality 282 mOsm/kg (285-295) L 07/27/23 11:25 Calcium 8.1 mg/dL (8.5-10.5) L 07/27/23 11:25 Magnesium 2.0 mg/dL (1.7-2.3) 07/27/23 11:25 Total Bilirubin 0.3 mg/dL (0.15-1.2) 07/27/23 11:25 AST 9 U/L (0-32) 07/27/23 11:25 ALT 6 U/L (0-33) 07/27/23 11:25 Alkaline Phosphatase 78 U/L (35-105) 07/27/23 11:25 Total Protein 6.0 g/dL (6.6-8.7) L 07/27/23 11:25 Albumin 3.8 g/dL (3.5-5.2) 07/27/23 11:25 Globulin 2.2 g/dL (1.3-4.6) 07/27/23 11:25 Lipase 17 U/L (13-60) 07/27/23 11:25 Urine Color Straw (Yellow) 07/27/23 13:17 Urine Appearance Sl hazy (CLEAR) A 07/27/23 13:17 Urine pH 5 (5-7) 07/27/23 13:17 Ur Specific [place] 1.015 (1.005-1.030) 07/27/23 13:17 Urine Protein Neg (Negative) 07/27/23 13:17 Urine Glucose (UA) Norm (Normal) 07/27/23 13:17 Urine Ketones Negative (Negative) 07/27/23 13:17 Urine Blood Neg (Negative) 07/27/23 13:17 Urine Nitrate Negative (Negative) 07/27/23 13:17 Urine Bilirubin Neg (Negative) 07/27/23 13:17 Urine Urobilinogen Norm mg/dL (Negative) 07/27/23 13:17 Ur Leukocyte Esterase Negative (Negative) 07/27/23 13:17 Urine RBC None /hpf (0-2) 07/27/23 13:17 Urine WBC 0-4 /hpf (0-5) H 07/27/23 13:17 Ur Squamous Epith Cells 10-15 /hpf (0-5) H 07/27/23 13:17 Amorphous Sediment Not Reportable 07/27/23 13:17 Urine Bacteria 1+ /hpf (NONE) H 07/27/23 13:17 Urine Opiates Screen Negative ng/mL (Negative) 07/27/23 13:17 Ur Barbiturates Screen Negative ng/mL (Negative) 07/27/23 13:17 Ur Phencyclidine Scrn Negative ng/mL (Negative) 07/27/23 13:17 Ur Amphetamines Screen Positive ng/mL (Negative) H 07/27/23 13:17 U Benzodiazepines Scrn Negative ng/mL (Negative) 07/27/23 13:17 Urine Cocaine Screen Negative ng/mL (Negative) 07/27/23 13:17 U Marijuana (THC) Screen Positive ng/mL (Negative) H 07/27/23 13:17 Group A Strep Rapid Negative (Negative) 07/27/23 12:04 Discharge Plan Discharge Patient Disposition: Home Clinical Impression: Martinez's cyst of knee, Methamphetamine use Condition: Stable Prescriptions: New diclofenac sodium 75 mg tablet,delayed release (DR/EC) 75 mg PO Q12H PRN (Reason: pain) Qty: 20 0RF No Action albuterol sulfate 90 mcg/actuation HFA aerosol inhaler 2 puff INHALATION Q6H PRN (Reason: Shortness Of Breath) fluticasone propion-salmeterol [Advair Diskus] 250-50 mcg/dose blister with device 1 inh INHALATION BID Spiriva Respimat 1.25 mcg/actuation mist 2 puff INHALATION DAILY levothyroxine 25 mcg capsule 25 mcg PO DAILY buspirone 10 mg tablet 20 mg PO TID 30 Days Qty: 180 2RF hydroxyzine HCl 50 mg tablet 50 mg PO QID PRN (Reason: insomnia/anxiety) Qty: 120 2RF trazodone 100 mg tablet 200 mg PO BEDTIME PRN (Reason: insomnia) Qty: 60 2RF prazosin 5 mg capsule 10 mg PO BEDTIME Qty: 60 2RF duloxetine [Cymbalta] 60 mg capsule,delayed release(DR/EC) 120 mg PO DAILY Qty: 60 2RF Discharge Orders: Discharge ED (Routine); Ordered 07/27/23 Ordered By: Jt Xavier Referrals: Pierre Mohr MD [Primary Care Provider] - Discharge Diet: Usual diet Discharge Activity: Increase activity as tolerated Patient Instructions: Martinez Cyst (ED), Opioid Safety, Pain Management Activity Restrictions/Additional Instructions: Up with your primary care doctor they can refer you for the Martinez's cyst orthopedics. Coding Level of Care Code ED License Examiner for Danya Drummond
--- NOTE | 2023-07-27 11:09 | USR_ITS ---
PROCEDURE INFORMATION: Exam: US Duplex Left Lower Extremity Veins, Limited Exam date and time: 07/27/2023 11:37 AM Age: 48 years old Clinical indication: Pain; Leg, lower; Left; Additional info: Leg pain and swelling TECHNIQUE: Imaging protocol: Real-time duplex ultrasound of the left extremity with 2-D waite scale, color Doppler flow and spectral waveform analysis including responses to compression and other maneuvers (when performed) with image documentation. Limited exam focused on the left lower extremity veins. COMPARISON[place] [id number] 06/12/2022 9:23 PM FINDINGS: Left deep veins: Unremarkable. The common femoral, femoral, proximal profunda femoral, popliteal and visualized calf veins are patent without thrombus. Normal compressibility, augmentation response and Doppler waveforms. Superficial veins: Unremarkable. Saphenofemoral junction is patent without thrombus. Soft tissues: 2.9 x 3.1 x 5.9 cm complex popliteal cyst. US/CV venous duplex [facility] [id number] IMPRESSION: 1. No sonographic evidence of deep vein thrombosis. 2. 2.9 x 3.1 x 5.9 cm complex popliteal cyst.
--- NOTE | 2023-07-27 11:09 | USR_ITS ---
PROCEDURE INFORMATION: Exam: US Abdomen, Limited; Right Upper Quadrant Exam date and time: 07/27/2023 11:49 AM Age: 48 years old Clinical indication: Abdominal pain; Epigastric; Additional info: Ruq pain TECHNIQUE: Imaging protocol: Real time ultrasound of the abdomen with image documentation. Limited exam focused on the right upper quadrant. COMPARISON: US gall bladder [id number] 07/03/2020 9:21 AM FINDINGS: Liver: Mildly echogenic, suggesting fatty infiltration. Gallbladder: Cholelithiasis without gallbladder wall thickening or pericholecystic fluid. Negative sonographic Kelly's sign, as per the hospice music therapist. Biliary ducts: Normal. No stones. No dilation. Pancreas: Unremarkable as visualized. Right kidney: No mass. No definite stones. No hydronephrosis. US/US gall bladder [id number] IMPRESSION: 1. Cholelithiasis without sonographic evidence of acute cholecystitis. 2. Fatty liver.
[2023-07-27] MEDS: ketorolac 30 mg/mL INJ IVP (11:27)
[2023-07-27 11:42] LABS: Basophils % 0.3 %; Eosinophils # 0.2 10^3/uL (0.0-0.8); Eosinophils % 2.4 %; Hematocrit 34.2 % (36-47); Lymphocytes # 1.7 10^3/uL (0.8-4.8); Lymphocytes % 17.5 %; Mean Corpuscular Hemoglobin 29.2 pg (27-33); Mean Corpuscular Volume 88.4 fl (85-98); Mean Platelet Volume 9.3 fL (7.4-10.4); Monocytes # 0.8 10^3/uL (0.2-0.9); Monocytes % 8.5 %; Neutrophils # 6.98 10^3/uL (1.8-7.7); Neutrophils % 70.9 %; Nucleated Red Blood Cells % 0 %; Platelet Count 284 10^3/cmm (157-399); Red Blood Count 3.87 10^6/uL (3.85-5.65); Red Cell Distribution Width 13.1 % (12.1-15.1); White Blood Count 9.86 10^3/uL (3.29-11.43)
[2023-07-27 12:18] LABS: Alanine Aminotransferase 6 U/L (0-33); Albumin Level 3.8 g/dL (3.5-5.2); Alkaline Phosphatase 78 U/L (35-105); Anion Gap 14.6 (5-19); Aspartate Amino Transferase 9 U/L (0-32); Blood Urea Nitrogen 6 mg/dL (6-20); Calcium 8.1 mg/dL (8.5-10.5); Carbon Dioxide 23 mmol/L (22-29); Chloride 104 mmol/L (98-107); Creatinine Clr Calc Pharmacy 111.0566; Globulin 2.2 g/dL (1.3-4.6); Glomerular Filtration Rate 90.1 mL/min (90-130); Glucose 74 mg/dL (65-115); Lipase 17 U/L (13-60); Osmolality Calculated 282 mOsm/kg (285-295); Potassium 3.6 mmol/L (3.5-5.1); Sodium 138 mmol/L (136-145); Total Bilirubin 0.3 mg/dL (0.15-1.2)
[2023-07-27 12:25] VITALS: BP 121/74; PULSE 76; RESP 18; O2SAT 97
[2023-07-27 12:31] LABS: Rapid Strep A Test Negative (Negative)
[2023-07-27 13:49] VITALS: BP 110/57; PULSE 72; O2SAT 98
[2023-07-27 13:53] LABS: Add Urine Microscopic? YES; Bilirubin Urine Neg (Negative); Blood Urine Neg (Negative); Glucose Urine UA Norm (Normal); Ketones Urine Negative (Negative); Leukocyte Esterase Urine Negative (Negative); Nitrate Urine Negative (Negative); Protein Urine Neg (Negative); Specific Gravity, Urine 1.015 (1.005-1.030); Urine Appearance SL Hazy (CLEAR); Urine Color Straw (Yellow); Urobilinogen Urine Norm (Negative); pH Urine 5 (5-7)
[2023-07-27 13:54] LABS: Add Urine Culture? No; Bacteria Urine 1+ /hpf; WBC Urine 0-4 /hpf (0-5)
[2023-07-27 13:58] LABS: Amphetamines Screen Urine Positive (Negative); Barbiturates Screen Urine Negative (Negative); Benzodiazepines Screen Urine Negative (Negative); Cocaine Screen Urine Negative (Negative); Opiate Screen Urine Negative (Negative); PCP Screen Urine Negative (Negative); THC Screen Urine Positive (Negative)
--- NOTE | 2023-07-27 14:28 | PC.NURSE ---
pt left the facility at approx 1415. pt still has IV intact and did not sign d/c paperwork. this auto service writer called [facility] and they stated they will not take the IV out or make the pt come back. they will ask her to come back and give her a ride if needed but they cannot force her to come back to the ED if she doesnt want to since she is not a psych patient.
== END 2023-07-27 16:41 | disposition home or self-care (01) ==
PROVIDERS: Emergency Provider Family Medicine; PCP Family Medicine
DX: M71.22 Synovial cyst of popliteal space [Baker], left knee (principal); F15.90 Other stimulant use, unspecified, uncomplicated; K80.20 Calculus of gallbladder without cholecystitis without obstruction; F17.210 Nicotine dependence, cigarettes, uncomplicated; J44.9 Chronic obstructive pulmonary disease, unspecified; Z86.19 Personal history of other infectious and parasitic diseases
CPT/HCPCS: 76705; 80053; 80306; 81001; 83690; 83735; 85025; 87081; 87880; 93971; 99284; J1885

== ENCOUNTER → 2023-09-15 14:47 | Outpatient (BNVA) | payer MEDICAID, SELFPAY | PROVIDERS: PCP Family Medicine; Visit Provider Specialist | DX: M25.562 Pain in left knee | CPT/HCPCS: 73560; 73565; 99204 ==

== ENCOUNTER 2023-10-20 10:44 | Outpatient (CLI) | payer MEDICAID, SELFPAY ==
--- NOTE | 2023-10-20 11:00 | MR_ITS ---
WS: [id number] MRI LEFT KNEE HISTORY: knee pain COMPARISON: None available. Anterior cruciate ligament: Intact. Posterior cruciate ligament: Intact. Medial collateral ligament: Fluid adjacent to the MCL but it does appear to be intact. Posterior lateral corner structures: Intact. Medial menisci: Abnormal signal of the posterior horn increasing towards the meniscal root. Blunting of the free edge towards the free edge with abnormal signal in the meniscal root. Anterior horn is no rmal. Lateral meniscus: Intact. Normal signal, size and shape. Extensor mechanism: Distal quadriceps tendon and patellar tendons are intact. Fluid and soft tissue: Moderate suprapatellar joint effusion. There is also soft tissue edema surroun ding the knee. Large Martinez's cyst extends over a length of 5.3 cm x 2.5 cm. There is edema and free f luid extending along the medial head of the gastrocnemius and also adjacent to the semimembranosus te ndon. There is edema and fluid within the medial head of the gastrocnemius. Osseous and articular structures: Patellofemoral compartment: Moderate chondromalacia of the patella. Greatest loss of cartilage along the medial patellar facet and at the patellar eminence. Subchondral edema at the patellar eminence. Medial compartment: Moderate narrowing the medial compartment. Moderate diffuse chondromalacia. Subch ondral cystic changes along the weightbearing surface of the femoral condyle. Osseous and cartilage s ignal abnormality is greatest where the meniscus is also abnormal in the posterior horn. Lateral compartment: Mild narrowing with mild diffuse chondromalacia. No marrow edema. No fracture. IMPRESSION: 1. Large Martinez cyst with possible partial rupture. There is fluid adjacent to the medial head of the gastrocnemius and within the muscle itself. 2. Moderate size suprapatellar joint effusion. 3. Complex tear posterior horn medial meniscus greatest at the free edge and extending into the menis cary root. 4. Moderate narrowing medial compartment with chondromalacia and subchondral cystic changes. 5. Mild narrowing lateral compartment. 6. Moderate chondromalacia patella, greatest involving the medial patellar facet and at the patellar evidence.
== END 2023-10-20 10:45 | disposition home or self-care (01) ==
LOC: RAD 10:44
PROVIDERS: PCP Family Medicine; Visit Provider Specialist
DX: S83.232A Complex tear of medial meniscus, current injury, left knee, initial encounter (principal); X58.XXXA Exposure to other specified factors, initial encounter; Y93.9 Activity, unspecified; Y92.9 Unspecified place or not applicable; Y99.9 Unspecified external cause status; M25.562 Pain in left knee; M71.22 Synovial cyst of popliteal space [Baker], left knee; M25.462 Effusion, left knee; M22.42 Chondromalacia patellae, left knee
CPT/HCPCS: 73721

== ENCOUNTER → 2023-10-28 08:06 | Outpatient (BNVA) | payer MEDICAID, SELFPAY | PROVIDERS: PCP Family Medicine; Visit Provider Nurse Practitioner | DX: M23.52 Chronic instability of knee, left knee (principal); M17.12 Unilateral primary osteoarthritis, left knee; S83.232A Complex tear of medial meniscus, current injury, left knee, initial encounter; X58.XXXA Exposure to other specified factors, initial encounter | CPT/HCPCS: 20610; 99214; J1100; J2795; J3301 ==

== ENCOUNTER 2023-11-24 10:17 | Emergency (ER) | payer MEDICAID, SELFPAY ==
--- NOTE | 2023-11-24 10:22 | ED_ITS ---
HPI - Dental/Oral General: Chief complaint: Dental/Oral Stated complaint: tooth pain Time Seen by Provider: 11/24/23 10:21 Source: patient Mode of arrival: ambulatory History of Present Illness: 48-year-old female with a history of poo r dentition presents emergency room with a left frontal maxillary tooth inflammation and pain mild gum swelling no drainage. She has had similar problems before she has had several tooth extrac tions for the same causes. She does not have a local dentist she previously been going to [facility] and cannot afford to do that anymore so is seeking to have something done more local. MD Complaint: tooth pain Onset (ago): day(s) (3) Relieving factors: nothing Exacerbating factors: chewing, cold and heat Context: history of dental caries and poor dental care Associated symptoms: Reports gum swelling; Denies ear or mastoid pain, fever(s), odynophagia, sore throat or tongue swelling Treatment prior to arrival: none Review of Systems Const: Denies: fever(s) ENMT: Denies: odynophagia or ear or mastoid pain Card: Denies: chest pain Resp: Denies: dyspnea GI: Denies: abdominal pain All/Imm: Denies: tongue swelling PFSH ED 2 PFSH: Medical History (Updated 11/24/23 @ 10:27 by Jt Xavier DO) Complex tear of meniscus of left knee as current injury Osteoarthritis of left knee Recurrent left knee instability Psychiatric care Cholelithiasis Hepatitis C COPD (chronic obstructive pulmonary disease) History of concussion EtOH dependence Insomnia Post traumatic stress disorder (PTSD) Surgical History History of hip replacement right History of tonsillectomy Family History Grandfather Cancer paternal lung cancer Other Diabetes Denies family history of Anesthesia complication Bleeding disorder Social History Smoking and tobacco/nicotine status: current every day tobacco/nicotine user cigarettes Packs smoked per day: 1 Years cigarettes smoked: 24 Quit status (tobacco/nicotine): has tried quititng Number of times tried to quit tobacco: 3 Second hand smoke exposure: No Alcohol intake: former Substance/Drug Use: never Household members: family Marital status: Single Current occupational status: employed Current gender identity: Female Physical Exam Const: COMMON NORMALS: no acute distress GENERAL APPEARANCE: cooperative and comfortable ORIENTATION/CONSCIOUSNESS: Yes awake, Yes oriented to person, Yes oriented to place and Yes oriented to time HENMT: COMMON NORMALS: normocephalic, atraumatic and hearing grossly normal bilaterally HEAD & SCALP: normocephalic and atraumatic OTHER: Poor dentition with multiple carious mild gum swelling in the left frontal maxillary incisors Resp: COMMON NORMALS: normal respiratory effort, No retractions, No use of accessory muscles and clear to auscultation bilaterally AUSCULTATION: clear to auscultation bilaterally Cardio: COMMON NORMALS: regular rate, regular rhythm and No murmurs present (Cardio) RATE: regular rate RHYTHM: regular rhythm Extremity: COMMON NORMALS: normal to inspection, capillary refill normal, no clubbing, cyanosis or edema, no calf tenderness and no pedal edema Neuro: SENSORIUM/ORIENTATION: Yes oriented to person, Yes oriented to place and Yes oriented to time Skin: COMMON NORMALS: no rashes or lesions noted GENERAL SKIN EXAM: no rashes or lesions noted Course Vital Signs: Vital signs: Vital Signs Temperature 97.7 F 11/24/23 10:24 Pulse Rate 78 11/24/23 10:52 Respiratory Rate 18 11/24/23 10:52 Blood Pressure 140/100 11/24/23 10:52 Pulse Oximetry 97 11/24/23 10:52 Oxygen Delivery Me thod Room Air 11/24/23 10:24 MDM - Dental/Oral Medical Decision Making Start Augmentin diclofenac. Encourage patient follow-up with dentist for definitive care as soon as she is able Medical Records I reviewed the patient's medical records. Lab Data I reviewed the patient's lab results. No radiology studies performed this visit Discharge Plan Discharge Patient Disposition: Home Clinical Impression: Dental caries Condition: Stable Prescriptions: New amoxicillin-pot clavulanate 875-125 mg tablet 1 tab PO BID Qty: 14 0RF diclofenac sodium 75 mg tablet,delayed release (DR/EC) 75 mg PO Q12H PRN (Reason: pain) Qty: 20 0RF Discontinued celecoxib [Celebrex] 200 mg capsule 200 mg PO BID Qty: 60 2RF diclofenac sodium 75 mg tablet,delayed release (DR/EC) 75 mg PO Q12H PRN (Reason: pain) Qty: 20 0RF meloxicam 15 mg tablet 15 mg PO DAILY No Action albuterol sulfate 90 mcg/actuation HFA aerosol inhaler 2 puff INHALATION Q6H PRN (Reason: Shortness Of Breath) trazodone 100 mg tablet 200 mg PO BEDTIME PRN (Reason: insomnia) Qty: 60 2RF prazosin 5 mg capsule 10 mg PO BEDTIME Qty: 60 2RF hydroxyzine HCl 50 mg tablet 50 mg PO QID PRN (Reason: insomnia/anxiety) Qty: 120 2RF buspirone 10 mg tablet 20 mg PO TID 30 Days Qty: 180 2RF duloxetine [Cymbalta] 60 mg capsule,delayed release(DR/EC) 120 mg PO DAILY Qty: 60 2RF cyclobenzaprine 10 mg tablet 10 mg PO TID (DME) Left knee hinged knee brace See Rx Instructions .Route .MEDSUPPLY Qty: 1 0RF Rx Instructions: As directed levothyroxine 25 mcg tablet 25 mcg PO DAILY Advair Diskus 100-50 mcg/dose blister with device 1 inh INHALATION BID fluticasone propionate 50 mcg/actuation spray,suspension 2 spray INTRANASAL DAILY PRN (Reason: Allergy Symptoms) Spiriva with HandiHaler 18 mcg capsule, w/inhalation device 1 cap INHALATION DAILY Discharge Orders: Discharge ED (Routine); Ordered 11/24/23 Ordered By: Jt Xavier Referrals: Pierre Mohr MD [Primary Care Provider] - Discharge Diet: Soft Mechanical Discharge Activity: Increase activity as tolerated Patient Instructions: Dental Caries (Cavities), Opioid Safety, Pain Management Activity Restrictions/Additional Instructions: Thank you for choosing [facility] for your healthcare needs today. Please realize this is an emergency room and that we are providing you with a medical screening exam and this may not be complete and all inclusive of all the testing and or work up that you may need to determine your ailment or severity of your illness. It is very important that you follow up as instructed or that you return to the Emergency Department should you have concerns or if your condition changes or worsens in any way. Follow-up with a dentist as soon as you are able for definitive care Coding Level of Care Code ED Rn Admit for Danya Drummond
[2023-11-24 10:24] VITALS: BP 140/101; PULSE 77; RESP 18; TEMP 36.5; O2SAT 100; BMI 32.3
[2023-11-24 10:52] VITALS: BP 140/100; PULSE 78; RESP 18; O2SAT 97
== END 2023-11-24 10:59 | disposition home or self-care (01) ==
PROVIDERS: Emergency Provider Family Medicine; PCP Family Medicine
DX: K02.9 Dental caries, unspecified (principal); F17.210 Nicotine dependence, cigarettes, uncomplicated; Z86.19 Personal history of other infectious and parasitic diseases; J44.9 Chronic obstructive pulmonary disease, unspecified
CPT/HCPCS: 99283

== ENCOUNTER → 2024-01-26 09:57 | Outpatient (BNVA) | payer MEDICAID, SELFPAY | PROVIDERS: PCP Family Medicine; Visit Provider Nurse Practitioner | DX: Z01.818 Encounter for other preprocedural examination (principal); M23.52 Chronic instability of knee, left knee; S83.232A Complex tear of medial meniscus, current injury, left knee, initial encounter; M17.12 Unilateral primary osteoarthritis, left knee; X58.XXXA Exposure to other specified factors, initial encounter | CPT/HCPCS: 36415; 80053; 81001; 85025; 99214 ==

== ENCOUNTER → 2024-02-11 10:37 | Outpatient (BNVA) | payer MEDICAID, SELFPAY | PROVIDERS: PCP Family Medicine; Visit Provider Family Medicine | DX: Z01.818 Encounter for other preprocedural examination (principal) | CPT/HCPCS: 80048; 81003 ==

== ENCOUNTER → 2024-02-12 09:01 | Outpatient (BNVA) | payer MEDICAID, SELFPAY | PROVIDERS: PCP Family Medicine; Visit Provider Family Medicine | DX: Z01.818 Encounter for other preprocedural examination (principal) | CPT/HCPCS: 87086 ==

== ENCOUNTER 2024-02-19 09:51 | Day surgery (SDC) | payer MEDICAID, SELFPAY ==
[2024-02-19] VITALS (14 sets, daily range): BP systolic 124–171; BP diastolic 83–124; PULSE 58–979; RESP 14–18; TEMP 36.2–36.4; O2SAT 16–100; BMI 33.9
[2024-02-19 10:29] LABS: OR HCG Qualitative Urine Negative (Negative)
[2024-02-19] MEDS: sodium chloride 0.9% 1,000 ML 30 ML IV (10:31)
[2024-02-19] MEDS: acetaminophen 1,000 MG/100 ML PIGGYBACK 400 MG IV (10:32)
[2024-02-19] MEDS: gabapentin 300 mg Capsule PO ×2 (10:33→10:36)
[2024-02-19] MEDS: albuterol 2.5 mg/3 mL Neb INHALATION (10:34)
[2024-02-19] MEDS: ipratropium 0.5 mg/2.5 mL Neb INHALATION (10:34)
[2024-02-19] MEDS: CELEcoxib 200 mg Capsule 400 MG PO (10:36)
--- NOTE | 2024-02-19 11:03 | P.HPUD_ITS ---
Surgery/Procedure H&P Update DATE OF PROCEDURE: February 19, 2024 DATE H&P PERFORMED: 01/26/24 H&P UPDATE INFORMATION: I have reviewed H&P completed within last 30 days, I have examined patient prior to procedure, No changes to prior documentation and H&P is in [facility] EMR on date indicated PRIMARY INDICATION FOR PROCEDURE: MRI from October 20, 2023 demonstrated the followin. Large Martinez cyst with possible partial rupture. There is fluid adjacent to the medial head of the gastrocnemius and within the muscle itself. 2. Moderate size suprapatellar joint effusion. 3. Complex tear posterior horn medial meniscus greatest at the free edge and extending into the meniscal root. 4. Moderate narrowing medial compartment with chondromalacia and subchondral cystic changes. 5. Mild narrowing lateral compartment. 6. Moderate chondromalacia patella, greatest involving the medial patellar facet and at the patellar evidence. PLANNED PROCEDURE: Operation Date: 02/19/24 11:45 Proposed Procedures p Knee Arthroscopy Knee Arthroscopy w/ Medial Menisectomy(Left) - Ольга Cevallos MD Related Problem List Diagnoses (1) Complex tear of meniscus of left knee as current injury: Qualifiers: Encounter type: initial encounter Meniscus of knee: medial Qualified Code(s): S83.232A - Complex tear of medial meniscus, current injury, left knee, initial encounter (2) Osteoarthritis of left knee: Qualifiers: Osteoarthritis type: primary Qualified Code(s): M17.12 - Unilateral primary osteoarthritis, left knee (3) Recurrent left knee instability:
[2024-02-19] MEDS: CELEcoxib 200 mg Capsule PO (11:07)
--- NOTE | 2024-02-19 11:07 | ANES.PREANE2 ---
Pre-Anesthetic Assessment Height/Weight: Height 1.68 m Weight 95.254 kg Temp Pulse Resp BP Pulse Ox O2 Del Method 97.5 F L 58 L 16 146/93 16 L Room Air 02/19/24 10:14 02/19/24 10:44 02/19/24 10:39 02/19/24 10:14 02/19/24 10:39 02/19/24 10:39 Operation Date: 02/19/24 11:45 Proposed Procedures p Knee Arthroscopy Knee Arthroscopy w/ Medial Menisectomy(Left) - Ольга Cevallos MD Familial anesthetic complications: agitation Was Beta Ankur taken within 24 hours: N/A Was Clonidine taken within 24 hours: N/A Last intake: Intake Last Liquid Date 02/18/24 Last Liquid Time 21:00 Last Solid Date 02/18/24 Last Solid Time 21:00 Social Alcohol and Tobacco Exam alert, oriented x 3, clear to auscultation bilaterally and regular rate & rhythm Airway Mallampati: Class II Dentition: chipped Pulmonary Chronic Obstructive Pulmonary Disease and Sleep Apnea Hepatic Hepatitis (C) Metabolic Thyroid Disease Anesthetic Plan ASA status: 3 Anesthesia: General Risk of > 500 ml blood loss (7ml/kg in children): No Medications/Allergies Home Medications Medication Instructions Recorded Confirmed Last Taken Type albuterol sulfate 90 mcg/actuation 2 puff inhalation Q6H PRN 07/12/20 02/18/24 02/18/24 History aerosol inhaler Shortness Of Breath Left knee hinged knee brace #1 ea 10/28/23 01/26/24 Unknown Rx fluticasone 100 mcg-salmeterol 50 1 inh inhalation BID 11/24/23 02/18/24 02/18/24 History mcg/dose blistr powdr for inhalation (Advair Diskus) fluticasone propionate 50 2 spray intranasal DAILY PRN 11/24/23 02/18/24 02/18/24 History mcg/actuation nasal Allergy Symptoms spray,suspension levothyroxine 25 mcg tablet 25 mcg PO DAILY 11/24/23 02/18/24 02/18/24 History tiotropium bromide 18 mcg capsule 1 cap inhalation DAILY 11/24/23 02/18/24 02/18/24 History with inhalation device (Spiriva with HandiHaler) buspirone 10 mg tablet 20 mg (2 x 10 mg) PO TID 30 days 12/18/23 02/18/24 02/19/24 09:40 Rx #180 tabs celecoxib 200 mg capsule (Celebrex) 200 mg PO BID 12/18/23 02/18/24 02/19/24 09:45 History duloxetine 60 mg capsule,delayed 120 mg (2 x 60 mg) PO DAILY #60 12/18/23 02/18/24 02/19/24 09:45 Rx release (Cymbalta) caps hydroxyzine HCl 50 mg tablet 50 mg PO QID PRN insomnia/anxiety 12/18/23 02/18/24 02/19/24 09:45 Rx #120 tabs prazosin 5 mg capsule 10 mg (2 x 5 mg) PO BEDTIME #60 12/18/23 02/18/24 02/18/24 Rx caps trazodone 100 mg tablet 200 mg (2 x 100 mg) PO BEDTIME PRN 12/18/23 02/18/24 02/18/24 Rx insomnia #60 tabs potassium chloride 10 mEq 10 meq PO DAILY #3 tabs 02/12/24 02/18/24 02/18/24 Rx tablet,extended release Allergies Allergy/AdvReac Type Severity Reaction Status Date / Time Plums AdvReac Intermediate Hives, Uncoded 02/19/24 10:06 swelling, itching. Current Medications Generic Name Dose Route Start Last Admin Trade Name Freq PRN Reason Stop Dose Admin Sodium Chloride 1,000 mls @ 30 mls/hr 02/19/24 10:00 02/19/24 10:31 Sodium Chloride 0.9% IV 02/20/24 09:59 30 mls/hr .Q24H REG Administration PFSH Anesthesia Medical History Complex tear of meniscus of left knee as current injury Osteoarthritis of left knee Recurrent left knee instability Psychiatric care Cholelithiasis Hepatitis C COPD (chronic obstructive pulmonary disease) History of concussion EtOH dependence Insomnia Post traumatic stress disorder (PTSD) Surgical History History of hip replacement right History of tonsillectomy Family History Grandfather Cancer paternal lung cancer Other Diabetes Denies family history of Anesthesia complication Bleeding disorder Social History Smoking and tobacco/nicotine status: current every day tobacco/nicotine user cigarettes Packs smoked per day: 1 Years cigarettes smoked: 24 Quit status (tobacco/nicotine): has tried quititng Number of times tried to quit tobacco: 3 Second hand smoke exposure: No Alcohol intake: former Substance/Drug Use: never Household members: family Marital status: Single Current occupational status: employed Current gender identity: Female Data Anesthesia Cardiac Studies: No Data to Display
[2024-02-19] MEDS: ceFAZolin 2,000 MG in sodium chloride 0.9% (plus) 50 ML 100 MG IV (11:57)
[2024-02-19] MEDS: ROPivacaine 0.5% SDV 30 mL 150 MG INJECTION (12:48)
[2024-02-19] MEDS: morphine 4 mg/mL SDV 1 mL 8 MG XX (12:48)
[2024-02-19] MEDS: ondansetron 2 mg/ML SDV 2 mL 4 MG IVP ×2 (13:45→13:57)
[2024-02-19] MEDS: hyDRALAzine 20 mg/mL INJ 1 mL (13:57)
--- NOTE | 2024-02-19 14:15 | P.OP_ITS ---
Operative Report Date of procedure: February 19, 2024 Pre-op diagnosis: Left knee medial meniscal tear and degenerative osteoarthritic change Post-op diagnosis: Left knee medial and lateral meniscal tears with degenerative osteoarthritic change Post-op findings: Severe degenerative osteoarthritis with medial and lateral meniscal tears along with severe degenerative osteoarthritic change Procedure done: Left arthroscopic knee surgery with partial medial and lateral meniscectomies, chondroplasties medial femoral condyle, lateral tibial plateau, trochlear groove, and patella Pathology: None Surgeon: Ольга Cevallos MD Starter Cup Powder Mixer: None Anesthesia: General (Intubated, ASA 3) Estimated blood loss (mL): 5 Tourniquet time (min): 41 (At 250 mmHg) IV fluids (mL): 1,000 Urine output (mL): 0 (No Al) Complications: None Findings: Significant degenerative osteoarthritic change with medial and lateral meniscal tears Condition: stable Disposition: PACU (Then return to same-day surgery for discharge to home) Brief History: This 49-year-old woman presents today after failing conservative measures for knee pain. She has had injection therapy. MRI demonstrated a Martinez's cyst with a complex tear of the posterior horn the medial meniscus. There was also noted to be moderate narrowing of the medial compartment with chondromalacia and subchondral cystic changes. There was mild narrowing of the lateral compartment and moderate chondromalacia patella as well. After discussion, the patient wished to proceed with operative intervention in the form of a arthroscopic knee surgery. Risk and complications were discussed with the patient. Additional discussion with the risks and complications including aggravation of degenerative osteoarthritis were discussed in detail with the patient. Consents were signed and questions were answered. Procedure: Patient was brought to the operating theater and after undergoing adequate general anesthesia, intubated, ASA 3, the patient's left lower extremity was prepped and draped in usual fashion utilizing DuraPrep. A tourniquet was placed high on the leg prior to prepping and draping. The tourniquet was elevated prior to commencement of the surgical procedure to 250 mmHg. Total tourniquet time was 41 minutes. Elevation followed prepping and exsanguination. Prior to commencement of the surgical procedure, a surgical pause was performed. At the time of the surgical pause, we identified the site and side of surgery. We also confirmed the patient's identity and appropriate and timely administration of preoperative antibiotics. Preoperative surgical markings were also visualized at this time. Standard arthroscopic portals were utilized including superolateral, inferomedial, and inferolateral portals. The examination commenced in the suprapatellar pouch area where the patient was noted to have significant chondromalacia of the undersurface of the patella and of the trochlear groove. The arthroscope was then passed into the medial compartment where there was noted to significant osteoarthritic changes over the medial femoral condyle and also irregularity of the posterior horn of the medial meniscus as well as the anterior horn. The scope was then passed through the notch area where the anterior cruciate ligament was noted to be intact. The leg was placed in a [id number] position and evaluation of the lateral compartment demonstrated irregularity of the inner rim of the lateral meniscus as well as significant chondromalacia of the lateral tibial plateau. The intra- articular shaver as well as the heat wand was then used to address the chondromalacia of the lateral tibial plateau. Basket forceps as well as the intra-articular shaver and heat wand were used to address the meniscus. The lateral meniscus was palpated and found not to be displaceable into the joint. Once it had been appropriately debrided, it was further palpated and found to not demonstrate displaced ability into the joint. Scope was passed back across the notch area where the anterior cruciate ligament was debrided. The scope was then returned to the medial compartment where the medial femoral condyle was debrided. Chondroplasty was performed of the medial femoral condyle. The meniscus was debrided with a combination of the intra-articular shaver as well as the intra-articular heat wand. The meniscus was palpated and found to be otherwise intact. It was not displaceable into the joint. Both gutters were also evaluated for loose bodies, and none were found. At this point, attention was directed to closure. The knee was copiously irrigated and suctioned dry. Each portal was then closed with a simple suture followed by Dermabond, Steri-Strip, and OpSite. A sterile dressing was further placed consisting of soft roll and an Silvestre wrap. The tourniquet was released after 41 minutes. There were no complications and no specimens. After closure of the portals, the knee was injected with 20 mL of half percent ropivacaine and 8 mg of morphine. An additional 10 cc of ropivacaine was placed about the portals. Patient was returned to recovery room and will be discharged to home to follow-up in the office as scheduled. Related Problem List Diagnoses (1) Complex tear of meniscus of left knee as current injury: (2) Osteoarthritis of left knee: (3) Recurrent left knee instability:
[2024-02-19] MEDS: TRAMadol 50 mg Tablet PO (14:30)
--- NOTE | 2024-02-19 15:15 | ANE.PACU2 ---
Inpatient post-anesthesia follow up: Airway intact: Yes Vital signs: Temperature 97.1 F Pulse Rate 99 Respiratory Rate 18 Blood Pressure 130/83 Pulse Oximetry 93 Oxygen Delivery Me thod Room Air Oxygen Flow Rate 3 Fraction of Inspir ed Oxygen Hydration adequate: Yes Nausea and vomiting: No Pain level: 1 Mental status: Baseline
== END 2024-02-19 15:17 | disposition home or self-care (01) ==
PROVIDERS: PCP Family Medicine; Visit Provider Specialist
PROC: (CPT 29870; principal; 2024-02-19 11:35)
PROC: (CPT 29880; 2024-02-19 11:35)
DX: S83.272A Complex tear of lateral meniscus, current injury, left knee, initial encounter (principal); S83.232A Complex tear of medial meniscus, current injury, left knee, initial encounter; X58.XXXA Exposure to other specified factors, initial encounter; M17.12 Unilateral primary osteoarthritis, left knee; Z86.19 Personal history of other infectious and parasitic diseases; J44.9 Chronic obstructive pulmonary disease, unspecified; F17.210 Nicotine dependence, cigarettes, uncomplicated
CPT/HCPCS: 29880; 81025; 84703; 94640; J0131; J0360; J0690; J1100; J1170; J2250; J2270; J2405; J2704; J2795; J3010; J3490; J7030; J7613; J7644

== ENCOUNTER → 2024-03-03 07:42 | Outpatient (BNVA) | payer MEDICAID, SELFPAY | PROVIDERS: PCP Family Medicine; Visit Provider Specialist | DX: M17.12 Unilateral primary osteoarthritis, left knee; S83.232D Complex tear of medial meniscus, current injury, left knee, subsequent encounter; X58.XXXD Exposure to other specified factors, subsequent encounter | CPT/HCPCS: 99024 ==

== ENCOUNTER 2024-04-12 08:58 | Emergency (ER) | payer MEDICAID, SELFPAY ==
[2024-04-12 09:13] VITALS: BP 119/80; PULSE 91; RESP 16; TEMP 36.1; O2SAT 94
--- NOTE | 2024-04-12 09:35 | ED_ITS ---
HPI - Nausea/Vomiting/Diarrhea 2 General: Chief complaint: Nausea/Vomiting/Diarrhea Stated complaint: N/V Time Seen by Provider: 04/12/24 09:14 Source: patient Mode of arrival: ambulatory History of Present Illness: 49-year-old female presents to the emerg ency room with complaints of generalized weakness nausea and vomiting. She discharged only did not felt well yesterday. No hematochezia melena hematemesis or coffee-ground emesis report of subjective low-grade fever the last few days. Denies dysuria urgency or frequency. No chest pain or abdominal pain at this time. MD elicited complaint: nausea and vomiting Onset (ago): day(s) Associated nausea: Yes Quality: cramping Exacerbating factors: none Associated symtoms: Reports anorexia, nausea and weakness; Denies altered mental status, anxiety, bloating, change in vision, chest pain, cough, diaphoresis, decreased urine output, dizziness, dysuria, epistaxis, fatigue, fecal incontinence, fevers/chills, headache(s), malaise, myalgias, numbness, palpitations, rash, short of breath, syncope, tenesmus or tinnitus Review of Systems 2 Const: Denies: fever(s), chills, fatigue, malaise or diaphoresis Eyes: Denies: change in vision ENMT: Denies: tinnitus or epistaxis Card: Denies: chest pain, palpitations or syncope Resp: Denies: dyspnea GI: Reports: nausea; Denies: abdominal pain, bloating or fecal incontinence : Denies: dysuria, urinary frequency or urinary urgency Musc: Denies: neck pain or back pain Skin/Breast: Denies: rash Neuro: Denies: headache(s) or dizziness Psych: Denies: anxiety PFSH ED 2 PFSH: Medical History Complex tear of meniscus of left knee as current injury Osteoarthritis of left knee Recurrent left knee instability Psychiatric care Cholelithiasis Hepatitis C COPD (chronic obstructive pulmonary disease) History of concussion EtOH dependence Insomnia Post traumatic stress disorder (PTSD) Surgical History History of hip replacement right History of tonsillectomy Family History Grandfather Cancer paternal lung cancer Other Diabetes Denies family history of Anesthesia complication Bleeding disorder Social History Smoking and tobacco/nicotine status: current every day tobacco/nicotine user cigarettes Packs smoked per day: 1 Years cigarettes smoked: 24 Quit status (tobacco/nicotine): has tried quititng Number of times tried to quit tobacco: 3 Second hand smoke exposure: No Alcohol intake: former Substance/Drug Use: never Household members: family Marital status: Single Current occupational status: employed Current gender identity: Female Physical Exam 2 Const: EXAM LIMITATIONS: no altered mental status GENERAL APPEARANCE: c ooperative and comfortable ORIENTATION/CONSCIOUSNESS: Yes awake, Yes oriented to person, Yes oriented to place and Yes oriented to time HENMT: COMMON NORMALS: normocephalic, atraumatic and hearing grossly normal bilaterally HEAD & SCALP: normocephalic and atraumatic Resp: COMMON NORMALS: normal respiratory effort, No retractions, No use of accessory muscles and clear to auscultation bilaterally AUSCULTATION: clear to auscultation bilaterally Cardio: COMMON NORMALS: regular rate, regular rhythm and No murmurs present (Cardio) RATE: regular rate RHYTHM: regular rhythm GI: COMMON NORMALS: Soft to palpation and No hepatosplenomegaly present A USCULTATION: Yes normoactive bowel sounds PALPATION: Yes Soft to palpation, No Tenderness to palpation present (GI), No Guarding due to palpation present (GI) and Yes No hepatosplenomegaly present Extremity: COMMON NORMALS: normal to inspection, capillary refill normal, no clubbing, cyanosis or edema, no calf tenderness and no pedal edema OTHER: Left knee well-healed scars from previous arthroscopy no erythema no joint effusion Neuro: SENSORIUM/ORIENTATION: Yes oriented to person, Yes oriented to place and Yes oriented to time Skin: COMMON NORMALS: no rashes or lesions noted GENERAL SKIN EXAM: no rashes or lesions noted Course 2 Vital Signs: Vital signs: Vital Signs Temperature 97.0 F L 04/12/24 09:13 Pulse Rate 84 04/12/24 13:09 Respiratory Rate 16 04/12/24 09:13 Blood Pressure 112/75 04/12/24 13:09 Pulse Oximetry 100 04/12/24 13:09 MDM - Nausea/Vomiting/Diarrhea Medical Decision Making Symptoms improved after IV fluids. Discharge home clear liquid diet antiemetics as needed return if has further problems. Patient related she had not taken her duloxetine for couple days encouraged her to resume that as previously prescribed Medical Records I reviewed the patient's medical records. Lab Data I reviewed the patient's lab results. 04/12/24 09:30 04/12/24 10:17 Laboratory Results WBC 10.43 10^3/uL (3.29-11.43) 04/12/24 09:30 RBC 4.42 10^6/uL (3.85-5.65) 04/12/24 09:30 Hgb 13.10 g/dL (11.27-16.99) 04/12/24 09:30 Hct 39.1 % (36-47) 04/12/24 09:30 MCV 88.5 fl (85-98) 04/12/24 09:30 MCH 29.6 pg (27-33) 04/12/24 09:30 MCHC 33.5 g/dL (30-55) 04/12/24 09:30 RDW 13.3 % (12.1-15.1) 04/12/24 09:30 Plt Count 322 10^3/cmm (157-399) 04/12/24 09:30 MPV 9.2 fL (7.4-10.4) 04/12/24 09:30 Neut % (Auto) 73.7 % 04/12/24 09:30 Lymph % (Auto) 18.4 % 04/12/24 09:30 [place] % (Auto) 5.2 % 04/12/24 09:30 Eos % (Auto) 1.8 % 04/12/24 09:30 Baso % (Auto) 0.4 % 04/12/24 09:30 Neut # (Auto) 7.69 10^3/uL (1.8-7.7) 04/12/24 09:30 Lymph # (Auto) 1.9 10^3/uL (0.8-4.8) 04/12/24 09:30 [place] # (Auto) 0.5 10^3/uL (0.2-0.9) 04/12/24 09:30 Eos # (Auto) 0.2 10^3/uL (0.0-0.8) 04/12/24 09:30 Baso # (Auto) 0.0 10^3/uL (0.0-0.1) 04/12/24 09:30 Nucleated RBC % (auto) 0 % 04/12/24 09:30 Nucleated RBCs # 0.0 /100WBC 04/12/24 09:30 Sodium 138 mmol/L (136-145) 04/12/24 10:17 Potassium 3.5 mmol/L (3.5-5.1) 04/12/24 10:17 Chloride 106 mmol/L (98-107) 04/12/24 10:17 Carbon Dioxide 22 mmol/L (22-29) 04/12/24 10:17 Anion Gap 13.5 (5-19) 04/12/24 10:17 BUN 5 mg/dL (6-20) L 04/12/24 10:17 Creatinine 0.7 mg/dL (0.5-0.9) 04/12/24 10:17 GFR Calculation 89.7 mL/min (90-130) L 04/12/24 10:17 Glucose 95 mg/dL (65-115) 04/12/24 10:17 Calculated Osmolality 283 mOsm/kg (285-295) L 04/12/24 10:17 Calcium 8.1 mg/dL (8.5-10.5) L 04/12/24 10:17 Magnesium 1.9 mg/dL (1.7-2.3) 04/12/24 10:17 Total Bilirubin 0.3 mg/dL (0.15-1.2) 04/12/24 10:17 AST 6 U/L (0-32) 04/12/24 10:17 ALT < 5 U/L (0-33) 04/12/24 10:17 Alkaline Phosphatase 100 U/L (35-105) 04/12/24 10:17 Total Protein 6.4 g/dL (6.6-8.7) L 04/12/24 10:17 Albumin 3.6 g/dL (3.5-5.2) 04/12/24 10:17 Globulin 2.8 g/dL (1.3-4.6) 04/12/24 10:17 Lipase 14 U/L (13-60) 04/12/24 10:17 Urine Color Yellow (Yellow) 04/12/24 09:59 Urine Appearance Clear (CLEAR) 04/12/24 09:59 Urine pH 5 (5-7) 04/12/24 09:59 Ur Specific [place] 1.015 (1.005-1.030) 04/12/24 09:59 Urine Protein Neg (Negative) 04/12/24 09:59 Urine Glucose (UA) Norm (Normal) 04/12/24 09:59 Urine Ketones Negative (Negative) 04/12/24 09:59 Urine Blood 2+ (Negative) H 04/12/24 09:59 Urine Nitrate Negative (Negative) 04/12/24 09:59 Urine Bilirubin Neg (Negative) 04/12/24 09:59 Urine Urobilinogen Neg mg/dL (Negative) 04/12/24 09:59 Ur Leukocyte Esterase Negative (Negative) 04/12/24 09:59 Urine RBC 0-4 /hpf (0-2) H 04/12/24 09:59 Urine WBC 0-4 /hpf (0-5) H 04/12/24 09:59 Ur Squamous Epith Cells 0-4 /hpf (0-5) H 04/12/24 09:59 Amorphous Sediment Not Reportable 04/12/24 09:59 Urine Bacteria 1+ /hpf (NONE) H 04/12/24 09:59 Urine Mucus 1+ /hpf 04/12/24 09:59 No radiology studies performed this visit Discharge Plan Discharge Patient Disposition: Home Clinical Impression: Gastroenteritis Condition: Stable Prescriptions: New promethazine 25 mg tablet 25 mg PO Q6H PRN (Reason: nausea and vomiting) Qty: 20 0RF No Action albuterol sulfate 90 mcg/actuation HFA aerosol inhaler 2 puff INHALATION Q6H PRN (Reason: Shortness Of Breath) (DME) Left knee hinged knee brace See Rx Instructions .Route .MEDSUPPLY Qty: 1 0RF Rx Instructions: As directed celecoxib [Celebrex] 200 mg capsule 200 mg PO DAILY 30 Days Qty: 30 1RF Rx Instructions: Take 1 tablet daily buspirone 10 mg tablet 20 mg PO TID 30 Days Qty: 180 2RF duloxetine [Cymbalta] 60 mg capsule,delayed release(DR/EC) 120 mg PO DAILY Qty: 60 2RF hydroxyzine HCl 50 mg tablet 50 mg PO QID PRN (Reason: insomnia/anxiety) Qty: 120 2RF trazodone 100 mg tablet 200 mg PO BEDTIME PRN (Reason: insomnia) Qty: 60 2RF prazosin 5 mg capsule 10 mg PO BEDTIME Qty: 60 2RF potassium chloride 10 mEq tablet extended release 10 meq PO DAILY Qty: 3 0RF Celebrex 200 mg capsule 200 mg PO DAILY Qty: 0 0RF levothyroxine 25 mcg tablet 25 mcg PO DAILY fluticasone propion-salmeterol [Advair Diskus] 100-50 mcg/dose blister with device 1 inh INHALATION BID fluticasone propionate 50 mcg/actuation spray,suspension 2 spray INTRANASAL DAILY PRN (Reason: Allergy Symptoms) tiotropium bromide [Spiriva with HandiHaler] 18 mcg capsule, w/inhalation device 1 cap INHALATION DAILY Discharge Orders: Discharge ED (Routine); Ordered 04/12/24 Ordered By: Jt Xavier Referrals: Pierre Mohr MD [Primary Care Provider] - Discharge Diet: Clear Liquid Discharge Activity: Increase activity as tolerated Patient Instructions: Clear Liquid Diet (ED), Opioid Safety, Pain Management Activity Restrictions/Additional Instructions: Thank you for choosing [facility] for your healthcare needs today. Please realize this is an emergency room and that we are providing you with a medical screening exam and this may not be complete and all inclusive of all the testing and or work up that you may need to determine your ailment or severity of your illness. It is very important that you follow up as instructed or that you return to the Emergency Department should you have concerns or if your condition changes or worsens in any way. You were seen today for nausea and vomiting. Recommend clear liquid diet for next 24 to 48 hours promethazine as needed for nausea and vomiting advance diet as tolerated if symptoms worsen or change return to the emergency room. Continue all your other medications as previously prescribed particularly your duloxetine. 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
[2024-04-12 09:37] LABS: Basophils % 0.4 %; Eosinophils # 0.2 10^3/uL (0.0-0.8); Eosinophils % 1.8 %; Hematocrit 39.1 % (36-47); Lymphocytes # 1.9 10^3/uL (0.8-4.8); Lymphocytes % 18.4 %; Mean Corpuscular HGB Conc 33.5 g/dL (30-55); Mean Corpuscular Hemoglobin 29.6 pg (27-33); Mean Corpuscular Volume 88.5 fl (85-98); Mean Platelet Volume 9.2 fL (7.4-10.4); Monocytes # 0.5 10^3/uL (0.2-0.9); Monocytes % 5.2 %; Neutrophils # 7.69 10^3/uL (1.8-7.7); Neutrophils % 73.7 %; Nucleated Red Blood Cells % 0 %; Platelet Count 322 10^3/cmm (157-399); Red Blood Count 4.42 10^6/uL (3.85-5.65); Red Cell Distribution Width 13.3 % (12.1-15.1); White Blood Count 10.43 10^3/uL (3.29-11.43)
[2024-04-12] MEDS: sodium chloride 0.9% 1,000 ML 999 ML IV ×2 (09:57→10:57)
[2024-04-12] MEDS: ondansetron 2 mg/ML SDV 2 mL 4 MG IVP (09:57)
[2024-04-12 10:24] LABS: Add Urine Culture? No; Add Urine Microscopic? YES; Bacteria Urine 1+ /hpf; Bilirubin Urine Neg (Negative); Blood Urine 2+ (Negative); Glucose Urine UA Norm (Normal); Ketones Urine Negative (Negative); Leukocyte Esterase Urine Negative (Negative); Mucus Urine 1+ /hpf; Nitrate Urine Negative (Negative); Protein Urine Neg (Negative); RBC Urine 0-4 /hpf (0-2); Specific Gravity, Urine 1.015 (1.005-1.030); Squamous Epithelial Cell Urine 0-4 /hpf (0-5); Urine Appearance Clear (CLEAR); Urine Color Yellow (Yellow); Urobilinogen Urine Neg (Negative); WBC Urine 0-4 /hpf (0-5); pH Urine 5 (5-7)
[2024-04-12 10:53] LABS: Alanine Aminotransferase < 5 U/L (0-33); Albumin Level 3.6 g/dL (3.5-5.2); Alkaline Phosphatase 100 U/L (35-105); Anion Gap 13.5 (5-19); Aspartate Amino Transferase 6 U/L (0-32); Blood Urea Nitrogen 5 mg/dL (6-20); Calcium 8.1 mg/dL (8.5-10.5); Carbon Dioxide 22 mmol/L (22-29); Chloride 106 mmol/L (98-107); Creatinine Clr Calc Pharmacy 114.1432; Globulin 2.8 g/dL (1.3-4.6); Glomerular Filtration Rate 89.7 mL/min (90-130); Glucose 95 mg/dL (65-115); Lipase 14 U/L (13-60); Magnesium 1.9 mg/dL (1.7-2.3); Osmolality Calculated 283 mOsm/kg (285-295); Potassium 3.5 mmol/L (3.5-5.1); Sodium 138 mmol/L (136-145); Total Bilirubin 0.3 mg/dL (0.15-1.2); Total Protein 6.4 g/dL (6.6-8.7)
[2024-04-12 11:04] VITALS: BP 99/54; PULSE 70; O2SAT 93
[2024-04-12 11:17] VITALS: BP 107/68
[2024-04-12 12:50] VITALS: BP 112/75
[2024-04-12 13:09] VITALS: BP 112/75; PULSE 84; O2SAT 100
== END 2024-04-12 13:14 | disposition home or self-care (01) ==
PROVIDERS: Emergency Provider Family Medicine; PCP Family Medicine
DX: K52.9 Noninfective gastroenteritis and colitis, unspecified (principal); Z86.19 Personal history of other infectious and parasitic diseases; J44.9 Chronic obstructive pulmonary disease, unspecified; F17.210 Nicotine dependence, cigarettes, uncomplicated
CPT/HCPCS: 36415; 80053; 81001; 83690; 83735; 85025; 96361; 96374; 99284; J2405; J7030

== ENCOUNTER → 2024-04-21 08:46 | Outpatient (BNVA) | payer MEDICAID, SELFPAY | PROVIDERS: PCP Family Medicine; Visit Provider Specialist | DX: S83.232D Complex tear of medial meniscus, current injury, left knee, subsequent encounter; X58.XXXD Exposure to other specified factors, subsequent encounter | CPT/HCPCS: 99024 ==

== ENCOUNTER 2024-11-09 17:15 | Emergency (ER) | payer MEDICAID, SELFPAY ==
[2024-11-09 17:17] VITALS: BP 150/85; PULSE 98; RESP 16; TEMP 36.9; O2SAT 96; BMI 31.8
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
[2024-11-09] MEDS: HYDROcodone-acetaminophen 5-325 mg Tablet 1 TAB PO (17:38)
[2024-11-09 19:43] VITALS: BP 129/96; PULSE 93; RESP 16; O2SAT 98
== END 2024-11-09 19:38 | disposition home or self-care (01) ==
PROVIDERS: Emergency Provider Emergency Medicine; PCP Family Medicine
DX: T14.8XXA Other injury of unspecified body region, initial encounter (principal); Y04.8XXA Assault by other bodily force, initial encounter; F17.210 Nicotine dependence, cigarettes, uncomplicated; J44.9 Chronic obstructive pulmonary disease, unspecified
CPT/HCPCS: 72125; 72128; 73130; 73562; 99284

== ENCOUNTER 2025-07-16 18:22 | Emergency (ER) | payer MEDICAID, SELFPAY ==
[2025-07-16 18:31] VITALS: BP 172/104; PULSE 88; RESP 16; TEMP 37.2; O2SAT 98; BMI 32.3
[2025-07-16 19:06] LABS: HCG Qualitative Urine. Negative (Negative)
--- NOTE | 2025-07-16 19:07 | ED_ITS ---
HPI - Back Pain/Injury 2 General: Chief Complaint: Back Pain/Injury Stated Complaint: Severe headache, Kidneys hurting Knee hurting Time Seen by Provider: 07/16/25 18:41 Source: patient and family Mode of arrival: ambulatory History of Present Illness: This patient presents to the emergency department because she thinks she has a kidney infection. She states she has had back pain body aches fever and chills for the last 2 days. She is also been nauseated but not is not vomited. She has had decreased intake because she has been lying in bed and not feeling well. She did she states she is also had a cough which is productive of clear mucus. She has a history of COPD and is a tobacco user. No one else at home is ill currently. She has not any recent travel or exposure to infectious disease as far as she knows. She is still having menstrual periods and her last menstrual period was normal last month. She is had no abdominal surgeries but states she has a gallbladder stone but it does not bother her unless she is not careful with her diet. She denies any back injury numbness weakness loss of bowel or bladder control etc. Associated symptoms: Reports chills, fever(s) and nausea; Deny abdominal pain, dysuria, hematuria, syncope or vomiting Related Data Home Medications ?Medication ?Instructions ?Recorded ?Confirmed albuterol sulfate 90 mcg/actuation 2 puff inhalation Q 6H PRN 07/12/20 04/01/25 aerosol inhaler Shortness Of Breath fluticasone 100 mcg-salmeterol 50 1 inh inhalation BID 11/24/23 04/01/25 mcg/dose blistr powdr for inhalation (Advair Diskus) fluticasone propionate 50 2 spray intranasal DAILY PRN 11/24/23 04/01/25 mcg/actuation nasal Allergy Symptoms spray,suspension levothyroxine 25 mcg tablet 25 mcg PO DAILY 11/24/23 0 04/01/25 tiotropium bromide 18 mcg capsule 1 cap inhalation REG LY 11/24/23 04/01/25 with inhalation device (Spiriva with HandiHaler) Previous Rx's ?Medication ?Instructions ?Recorded Left knee hinged knee brace #1 ea 10/28/23 potassium chloride 10 mEq 10 meq PO DAILY #3 tabs 01/23 12/17 tablet,extended release celecoxib 200 mg capsule (Celebrex) 200 mg PO DAILY #0 caps 02/19/24 celecoxib 200 mg capsule See Rx Instructions .Route 0 05/17/24 .COMPLEX #30 caps buspirone 10 mg tablet 20 mg (2 x 10 mg) PO TID 30 days 04/01/25 #180 tabs duloxetine 60 mg capsule,delayed 120 mg (2 x 60 mg) PO DAILY #60 04/01/25 release (Cymbalta) caps hydroxyzine HCl 50 mg tablet 50 mg PO QID PRN insomnia /anxiety 04/01/25 #120 tabs prazosin 5 mg capsule 10 mg (2 x 5 mg) PO BEDTIME #60 04/01/25 caps trazodone 100 mg tablet 200 mg (2 x 100 mg) PO BEDTI ME PRN 04/01/25 insomnia #60 tabs cephalexin 500 mg capsule 500 mg PO Q6H 7 days #28 cap s 07/16/25 ondansetron 4 mg disintegrating 4 mg PO Q8H PRN nausea and 07/16/25 tablet vomiting #14 tabs Allergies Allergy/AdvReac Type Severity Reaction Status Date / Time plum Allergy Intermediate Hives, Verified 07/16/25 18:35 swelling, itching. Review of Systems 2 Const: Reports: fever(s), chills, body aches and change in appetite ENMT: Denies: throat pain, odynophagia, nasal discharge or nasal congestion Card: Denies: chest pain, syncope or pre-syncope Resp: Reports: productive cough GI: Reports: nausea; Denies: abdominal pain, vomiting or diarrhea : Reports: oliguria; Denies: difficulty voiding, dysuria, hematuria, vaginal bleeding or vaginal discharge Musc: Reports: back pain; Denies: neck pain, extremity pain or extremity swelling Skin/Breast: Denies: rash Neuro: Reports: headache(s); Denies: numbness in extremities or weakness in extremities Gino/Lymph: Denies: easy bruising or easy bleeding PFSH ED 2 PFSH: Medical History Complex tear of meniscus of left knee as current injury Osteoarthritis of left knee Recurrent left knee instability Psychiatric care Cholelithiasis Hepatitis C COPD (chronic obstructive pulmonary disease) History of concussion EtOH dependence Insomnia Post traumatic stress disorder (PTSD) Surgical History History of hip replacement right History of tonsillectomy Family History Grandfather Cancer paternal lung cancer Other Diabetes Denies family history of Anesthesia complication Bleeding disorder Social History Smoking and tobacco/nicotine status: current every day tobacco/nicotine user cigarettes Packs smoked per day: 1 Years cigarettes smoked: 24 Quit status (tobacco/nicotine): has tried quititng Number of times tried to quit tobacco: 3 Second hand smoke exposure: No Alcohol intake: former Substance/Drug Use: never Household members: family Marital status: Single Current occupational status: employed Current gender identity: Female Physical Exam 2 Narrative: EXAM NARRATIVE: She is lying in bed with blankets on appears to be somewhat uncomfortable but is able to interact appropriately and answer questions in a goal-directed fashion. Const: COMMON NORMALS: patient oriented x3, no limitations and alert G ENERAL APPEARANCE: cooperative NUTRITIONAL APPEARANCE: obese HENMT: COMMON NORMALS: atraumatic, Normal nasal mucous membranes and turbinates present, moist oral mucous membranes and oropharynx normal HEAD & SCALP: atraumatic NOSE: Normal nasal mucous membranes and turbinates present Eye: COMMON NORMALS: Equal, round and reactive pupils present, EOMs intact bilaterally and conjunctivae normal CONJUNCTIVA: Yes conjunctivae normal P UPIL: Yes Equal, round and reactive pupils present Neck/C-Spine: COMMON NORMALS: full ROM, supple, no JVD and No carotid bruits Chest: COMMONS NORMALS: normal inspection of the chest Resp: COMMON NORMALS: normal respiratory effort, No retractions and No use of accessory muscles AUSCULTATION: rhonchi lower bilaterally Cardio: COMMON NORMALS: no JVD, regular rate, regular rhythm, No murmurs present (Cardio) and Peripheral pulses 2+ throughout RATE: regular rate R HYTHM: regular rhythm PERIPHERAL PULSES: Peripheral pulses 2+ throughout GI: COMMON NORMALS: Normal to inspection, nondistended, normoactive bowel sounds present, Soft to palpation and non-tender INSPECTION: Yes central obesity PALPATION: Yes Soft to palpation Back/Pelvis: COMMON NORMALS: thoracic and lumbar spine normal to inspection, no thoracic nor lumbar tenderness, thoraco-lumbar ROM normal and straight leg raise negative bilaterally Extremity: COMMON NORMALS: normal to inspection, full ROM, no calf tenderness and no pedal edema Neuro: COMMON NORMALS: patient oriented x3, moves all extremities, no focal motor deficits and no sensory deficits noted SENSORIUM/ORIENTATION: Yes alert CRANIAL NERVES: Yes CN normal except as noted Psych: COMMON NORMALS: mental status grossly normal Skin: COMMON NORMALS: no rashes or lesions noted, no wounds and turgor normal GENERAL SKIN EXAM: no rashes or lesions noted and turgor normal Course 2 Reevaluation(s): Reevaluation #1: She has significant urinary tract findings with leukocytosis consistent with urinary tract infection. She has not had emesis and otherwise has been able to take fluids we will continue with loading dose of ceftriaxone in the emergency department and allow her to drink fluids and and then reevaluate in formulate a plan of care in concert with the patient and her significant other. Time: 20:02 Reevaluation #2: Patient is drinking fluids and feeling some better. We discussed treatment options and particular we discussed that it would not be an unreasonable plan for us to continue her observation status to continue IV hydration and reevaluate for continued improvement in ability to tolerate medications etc. Both she and her significant other voiced understanding of that discussion and recommendation however it is her preference that she be discharged home on oral antibiotics for trial of therapy at home. She acknowledges that there is a potential that she could become sicker and have to return and be admitted to the hospital at that time. She does have a leukocytosis but is afebrile here not tachycardic and has a normal blood pressure and is able to tolerate fluids and so I think it is not an unreasonable decision to attempt a trial of home therapy. Furthermore her imaging studies do not reveal any signs of ureterolithiasis or other obstructive process that would further complicate her clinical condition. We were very clear on the instructions and reasons to return to the emergency department to include inability to tolerate medication, high fevers, inability to continue oral intake etc. Both the patient and her significant other acknowledged the instructions and were appreciative of care. Time: 21:22 Vital Signs: Vital signs: Vital Signs Temperature 99.0 F 07/16/25 18:31 Pulse Rate 77 07/16/25 20:02 Respiratory Rate 16 07/16/25 20:02 Blood Pressure 148/95 07/16/25 20:02 Pulse Oximetry 93 07/16/25 20:02 Oxygen Delivery Me thod Room Air 07/16/25 20:02 MDM - Back Pain/Injury Medical Decision Making This patient presented as noted in the HPI. She has been having back pain and bodyaches and myalgias for the last several days. Her clinical examination noted reassuring vital signs with no hypoxia, no tachycardia, a slightly elevated blood pressure but certainly not hypotension. She had no evidence of surgical abdomen on examination. Her laboratory evaluation revealed a leukocytosis as well as a urinalysis with pyuria bacteria and hematuria. She received IV fluids, antiemetics as well as a loading dose of ceftriaxone. Urine and blood cultures were also obtained. Imaging was obtained to ensure that there was no obstructive uropathy given her her stated history of kidney stones sometime in her past. Imaging was really assuring without any evidence of obstructive uropathy or other concerning findings. She tolerated her medications and did tolerate oral fluids in the emergency department. She had her vital signs remained stable without any evidence of tachycardia hypotension etc. We discussed treatment options and emphasized that an ideal choice would be for us to continue an observation status for at least 24 hours to ensure that she was going to do well. She voiced understanding of those recommendations and the risk of going home but again preferred to be discharged home for home care and this was reinforced by the agreement of her significant other. She acknowledged that there was a risk of worsening of her condition and did agree to return to the emergency department at any time that she felt that she was not doing well or was getting sicker or could not tolerate the medicines etc. She was prescribed both an antibiotic and antiemetic to continue her home therapy. Medical Records I reviewed the patient's medical records. Labs I reviewed the patient's lab results. 07/16/25 19:25 07/16/25 19:25 Radiology Impressions Chest X-Ray 07/16/25 19:12 IMPRESSION: 1. No acute cardiopulmonary abnormality. Abdomen/Pelvis CT 07/16/25 20:05 IMPRESSION: 1. Findings compatible with ascending urinary infection, right worse than left. Postcontrast CT may be helpful to evaluate for pyelonephritis if clinically warranted. Laboratory Results WBC 20.52 10^3/uL (3.29-11.43) H 07/16/25 19:25 RBC 4.61 10^6/uL (3.85-5.65) 07/16/25: Hgb 13.60 g/dL (11.27-16.99) 07/16/25: Hct 40.0 % (36-47) 07/16/25: MCV 86.8 fl (85-98) 07/16/25: MCH 29.5 pg (27-33) 07/16/25: MCHC 34.0 g/dL (30-55) 07/16/25: RDW 13.7 % (12.1-15.1) 07/16/25: Plt Count 270 10^3/cmm (157-399) 07/16/25: MPV 9.1 fL (7.4-10.4) 07/16/25: Neut % (Auto) 81.6 % 07/16/25: Lymph % (Auto) 10.9 % 07/16/25: Whitley % (Auto) 6.6 % 07/16/25: Eos % (Auto) 0.0 % 07/16/25: Baso % (Auto) 0.2 % 07/16/25: Neut # (Auto) 16.74 10^3/uL (1.8-7.7) H 07/16/25: Lymph # (Auto) 2.2 10^3/uL (0.8-4.8) 07/16/25: Whitley # (Auto) 1.4 10^3/uL (0.2-0.9) H 07/16/25: Eos # (Auto) 0.0 10^3/uL (0.0-0.8) 07/16/25: Baso # (Auto) 0.0 10^3/uL (0.0-0.1) 07/16/25: Nucleated RBC % (auto) 0 % 07/16/25 Nucleated RBCs # 0.0 /100WBC 07/16/25 19: Sodium 137 mmol/L (136-145) 07/16/25: Potassium 3.2 mmol/L (3.5-5.1) L 07/16/25: Chloride 99 mmol/L (98-107) 07/16/25 19:25 Carbon Dioxide 24 mmol/L (22-29) 07/16/25 19:25 Anion Gap 17.2 (5-19) 07/16/25 19:25 BUN 6 mg/dL (6-20) 07/16/25 19:25 Creatinine 0.8 mg/dL (0.5-0.9) 07/16/25 19:25 GFR Calculation 76.6 mL/min (90-130) L 07/16/25 19: Glucose 124 mg/dL (65-115) H 07/16/25 19:25 Calculated Osmolality 283 mOsm/kg (285-295) L 07/16/25 19: Calcium 8.3 mg/dL (8.5-10.5) L 07/16/25 19: Total Bilirubin 0.4 mg/dL (0.15-1.2) 07/16/25 19: AST 9 U/L (0-32) 07/16/25: ALT 6 U/L (0-33) 07/16/25 19:25 Alkaline Phosphatase 101 U/L (35-105) 07/16/25 19:25 Total Protein 7.5 g/dL (6.6-8.7) 07/16/25 19:25 Albumin 4.1 g/dL (3.5-5.2) 07/16/25 19:25 Globulin 3.4 g/dL (1.3-4.6) 07/16/25 19:25 HCG, Qual Negative (Negative) 07/16/25 18:39 Urine Color Yellow (Yellow) 07/16/25 18:39 Urine Appearance Cloudy (CLEAR) A 07/16/25 18:39 Urine pH 6.0 (5-7) 07/16/25 18:39 Ur Specific [place] 1.010 (1.005-1.030) 07/16/25 18:39 Urine Protein 1+ (Negative) A 07/16/25 18:39 Urine Glucose (UA) Negative (Normal) 07/16/25 18:39 Urine Ketones Negative (Negative) 07/16/25 18:39 Urine Blood 2+ (Negative) A 07/16/25 18:39 Urine Nitrate Positive (Negative) A 07/16/25 18:39 Urine Bilirubin Negative (Negative) 07/16/25 18:39 Urine Urobilinogen 1.0 mg/dL (Negative) 07/16/25 18:39 Ur Leukocyte Esterase 2+ (Negative) A 07/16/25 18:39 Urine RBC 21-50 /hpf (0-2) H 07/16/25 18:39 Urine WBC >100 /hpf (0-5) H 07/16/25 18:39 Ur Squamous Epith Cells 6-10 /hpf (0-5) 07/16/25 18:39 Amorphous Sediment Not Reportable 07/16/25 18:39 Urine Bacteria 4+ /hpf (NONE) H 07/16/25 18:39 Hyaline Casts 0.81 /lpf 07/16/25 18:39 All radiology interpretation(s) finalized by discharge Discharge Plan Discharge Patient Disposition: Home Clinical Impression: Urinary tract infection Qualifiers: Urinary tract infection type: site unspecified Hematuria presence: with hematuria Qualified Code(s): N39.0 - Urinary tract infection, site not specified Condition: Stable Prescriptions: New ondansetron 4 mg tablet,disintegrating 4 mg PO Q8H PRN (Reason: nausea and vomiting) Qty: 14 0RF cephalexin 500 mg capsule 500 mg PO Q6H 7 Days Qty: 28 0RF Discontinued promethazine 25 mg tablet 25 mg PO Q6H PRN (Reason: nausea and vomiting) Qty: 20 0RF No Action albuterol sulfate 90 mcg/actuation HFA aerosol inhaler 2 puff INHALATION Q6H PRN (Reason: Shortness Of Breath) duloxetine [Cymbalta] 60 mg capsule,delayed release(DR/EC) 120 mg PO DAILY Qty: 60 11RF buspirone 10 mg tablet 20 mg PO TID 30 Days Qty: 180 11RF hydroxyzine HCl 50 mg tablet 50 mg PO QID PRN (Reason: insomnia/anxiety) Qty: 120 11RF prazosin 5 mg capsule 10 mg PO BEDTIME Qty: 60 11RF trazodone 100 mg tablet 200 mg PO BEDTIME PRN (Reason: insomnia) Qty: 60 11RF (DME) Left knee hinged knee brace See Rx Instructions .Route .MEDSUPPLY Qty: 1 0RF Rx Instructions: As directed potassium chloride 10 mEq tablet extended release 10 meq PO DAILY Qty: 3 0RF celecoxib 200 mg capsule See Rx Instructions .ROUTE .COMPLEX Qty: 30 1RF Dose Instruction: take 1 capsule BY MOUTH EVERY DAY Rx Instructions: take 1 capsule BY MOUTH EVERY DAY Celebrex 200 mg capsule 200 mg PO DAILY Qty: 0 0RF levothyroxine 25 mcg tablet 25 mcg PO DAILY fluticasone propion-salmeterol [Advair Diskus] 100-50 mcg/dose blister with device 1 inh INHALATION BID fluticasone propionate 50 mcg/actuation spray,suspension 2 spray INTRANASAL DAILY PRN (Reason: Allergy Symptoms) tiotropium bromide [Spiriva with HandiHaler] 18 mcg capsule, w/inhalation device 1 cap INHALATION DAILY Discharge Orders: Discharge ED (Routine); Ordered 07/16/25 Ordered By: Neo Sorensen Referrals: Pierre Mohr MD [Primary Care Provider, [facility]] - 2 weeks Discharge Diet: Advance as tolerated Discharge Activity: Increase activity as tolerated Patient Instructions: Opioid Safety, Pain Management, Patient Portal & Maryellen Instructions Activity Restrictions/Additional Instructions: As we discussed while you are in the emergency department you have a kidney infection will require antibiotics for the next week. While we think that it is in your best interest to at least stay in the hospital for a short period of time to ensure that you are going to continue to recover we understand that you have decided to go home and be treated at that location. We have provided medication to treat your condition and you should feel welcome to return to the emergency department at any time should you not be successful with your treatment to include: inability to tolerate your medications, worsening feelings with high fever, inability eat or drink etc. You should continue all your usual medications as prescribed. You should endeavor to drink at least 2 quarts of fluid daily. 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
--- NOTE | 2025-07-16 19:12 | XRR_ITS ---
PROCEDURE INFORMATION: Exam: XR Chest Exam date and time: 07/16/2025 7:12 PM Age: 50 years old Clinical indication: Cough and fever; Additional info: Cough fever TECHNIQUE: Imaging protocol: Radiologic exam of the chest. Views: 1 view. COMPARISON: CR XR chest 2V* [id number] 10/13/2022 10:43 AM FINDINGS: Lungs: No focal consolidation. Pleural spaces: No evidence of pneumothorax. No evidence of pleural effusion. Heart/Mediastinum: Cardiomediastinal silhouette is within normal limits. Bones/joints: No evidence of acute osseous abnormality. XR/XR chest 1V portable [id number] IMPRESSION: 1. No acute cardiopulmonary abnormality.
[2025-07-16 19:21] LABS: Glucose Urine UA Negative (Normal); Nitrate Urine Positive (Negative); Specific Gravity, Urine 1.010 (1.005-1.030)
[2025-07-16 19:24] LABS: Add Urine Microscopic? YES
[2025-07-16] MEDS: ondansetron 2 mg/ML SDV 2 mL 4 MG IVP (19:27)
[2025-07-16 19:33] VITALS: BP 140/88; PULSE 77; RESP 18; O2SAT 95
[2025-07-16 19:54] LABS: Hematocrit 40.0 % (36-47); Hemoglobin 13.60 g/dL (11.27-16.99); Mean Corpuscular HGB Conc 34.0 g/dL (30-55); Mean Corpuscular Hemoglobin 29.5 pg (27-33); Mean Corpuscular Volume 86.8 fl (85-98); Nucleated Red Blood Cells % 0 %; Platelet Count 270 10^3/cmm (157-399); Red Blood Count 4.61 10^6/uL (3.85-5.65); White Blood Count 20.52 10^3/uL (3.29-11.43)
[2025-07-16] MEDS: cefTRIAXone 2,000 mg SDV 2000 MG IVP (20:00)
[2025-07-16 20:02] VITALS: BP 148/95; PULSE 77; RESP 16; O2SAT 93
--- NOTE | 2025-07-16 20:05 | CTR_ITS ---
PROCEDURE INFORMATION: Exam: CT Abdomen And Pelvis Without Contrast Exam date and time: 07/16/2025 8:20 PM Age: 50 years old Clinical indication: Fever and nausea and vomiting; Abdominal pain; Prior surgery; Surgery date: 6+ months; Surgery type: [place]; C/O bilat flank pain with fever and n/v; Additional info: HX of renal stones-now with infection-eval for obstruction TECHNIQUE: Imaging protocol: Computed tomography of the abdomen and pelvis without contrast. Radiation optimization: All CT scans at this facility use at least one of these dose optimization techniques: automated exposure control; mA and/or kV adjustment per patient size (includes targeted exams where dose is matched to clinical indication); or iterative reconstruction. COMPARISON: ES surgery / GI images 02/19/2024 10:21 AM RADIATION DOSE METRICS: Total DLP (mGy-cm): 933.58 FINDINGS: Lungs: Subsegmental bibasilar atelectasis. The visualized lung bases are otherwise clear. Diaphragm: No evidence of diaphragmatic defect. Liver: No evidence of focal hepatic lesion within limitation of a noncontrast exam. There is hepatomegaly with right lobe measuring up to 20 cm. Gallbladder and biliary ducts: There is cholelithiasis. No inflammatory changes to suggest acute cholecystitis. No intrahepatic or extrahepatic biliary dilatation. Pancreas: Grossly unremarkable. Spleen: Grossly unremarkable. Adrenal glands: Grossly unremarkable. Kidneys and ureters: Right perinephric, peripelvic and periureteral inflammatory changes compatible with ascending urinary infection and possible pyelonephritis, evaluation of which is limited by lack of IV contrast. Mild left-sided perinephric haziness to a lesser extent. No evidence of hydronephrosis or ureteral stone. Stomach and bowel: No evidence of bowel obstruction or perienteric inflammatory changes. Appendix: Normal appendix. Intraperitoneal space: No evidence of free air or fluid collection. Vasculature: No evidence of aneurysmal dilitation of abdominal aorta. Lymph nodes: No evidence of adenopathy. Urinary bladder: Grossly unremarkable. Reproductive: Grossly unremarkable. There is laxity of the pelvic floor with inferior descent of the vaginal cuff and anorectal junction. Bones/joints: No evidence of acute fracture or aggresive osseous lesion. Total right hip arthroplasty. Soft tissues: No evidence of fluid collection or hematoma in the superficial soft tissues. CT/CT kidney stone [id number] IMPRESSION: 1. Findings compatible with ascending urinary infection, right worse than left. Postcontrast CT may be helpful to evaluate for pyelonephritis if clinically warranted.
[2025-07-16 20:19] LABS: Alanine Aminotransferase 6 U/L (0-33); Albumin Level 4.1 g/dL (3.5-5.2); Alkaline Phosphatase 101 U/L (35-105); Anion Gap 17.2 (5-19); Aspartate Amino Transferase 9 U/L (0-32); Blood Urea Nitrogen 6 mg/dL (6-20); Calcium 8.3 mg/dL (8.5-10.5); Carbon Dioxide 24 mmol/L (22-29); Chloride 99 mmol/L (98-107); Creatinine Clr Calc Pharmacy 97.5697; Globulin 3.4 g/dL (1.3-4.6); Glucose 124 mg/dL (65-115); Osmolality Calculated 283 mOsm/kg (285-295); Potassium 3.2 mmol/L (3.5-5.1); Sodium 137 mmol/L (136-145); Total Protein 7.5 g/dL (6.6-8.7)
[2025-07-16 21:22] VITALS: BP 168/97; PULSE 77; O2SAT 93
[2025-07-16 21:44] VITALS: BP 142/82; PULSE 80; O2SAT 97
== END 2025-07-16 21:46 | disposition home or self-care (01) ==
PROVIDERS: Emergency Provider Emergency Medicine; PCP Family Medicine
DX: N39.0 Urinary tract infection, site not specified (principal); D72.829 Elevated white blood cell count, unspecified; F17.210 Nicotine dependence, cigarettes, uncomplicated
CPT/HCPCS: 36415; 71045; 74176; 80053; 81001; 81025; 85025; 87040; 87077; 87086; 87186; 96361; 96374; 96375; 99285; J0696; J2405; J7120